=== PATIENT | female | born 1985 | race African-American/Black ===

== ENCOUNTER 2016-12-29 14:00 | Outpatient (RCR) | payer MEDICAID ==
[~2016-12-29 14:00] MED LIST: ACET50TA PO; EFFE75CA75 OR; IBUP-1114 PO; MOTR200T44 PO; NICO7DIS4 TD; PERCOCET PO; QUET20XRTB PO; TRAZ150T OR; lamictal
== END 2016-12-30 | disposition home or self-care (01) ==
LOC: M OUTALCOH 14:00
PROVIDERS: ATTEND Psychiatry & Neurology Psychiatry
DX: F13.20 Sedative, hypnotic or anxiolytic dependence, uncomplicated (principal); F11.20 Opioid dependence, uncomplicated; F12.20 Cannabis dependence, uncomplicated; F17.200 Nicotine dependence, unspecified, uncomplicated; F14.20 Cocaine dependence, uncomplicated

== ENCOUNTER 2017-01-26 14:00 | Outpatient (RCR) | payer MEDICAID | END 2017-01-27 | LOC: M OUTALCOH 14:00 | PROVIDERS: ATTEND Psychiatry & Neurology Psychiatry | DX: F13.20 Sedative, hypnotic or anxiolytic dependence, uncomplicated (principal); F11.20 Opioid dependence, uncomplicated; F12.20 Cannabis dependence, uncomplicated; F17.200 Nicotine dependence, unspecified, uncomplicated; F14.20 Cocaine dependence, uncomplicated ==

== ENCOUNTER → 2017-02-27 | Outpatient (RCR) | payer MEDICAID | LOC: M OUTALCOH 02-02 14:44 | PROVIDERS: ATTEND Psychiatry & Neurology Psychiatry | DX: F13.20 Sedative, hypnotic or anxiolytic dependence, uncomplicated (principal); F11.20 Opioid dependence, uncomplicated; F12.20 Cannabis dependence, uncomplicated; F17.200 Nicotine dependence, unspecified, uncomplicated; F14.20 Cocaine dependence, uncomplicated ==

== ENCOUNTER 2017-03-26 14:00 | Outpatient (RCR) | payer MEDICAID | END 2017-03-29 | LOC: M OUTALCOH 14:00 | PROVIDERS: ATTEND Psychiatry & Neurology Psychiatry | DX: F13.20 Sedative, hypnotic or anxiolytic dependence, uncomplicated (principal); F11.20 Opioid dependence, uncomplicated; F12.20 Cannabis dependence, uncomplicated; F17.200 Nicotine dependence, unspecified, uncomplicated; F14.20 Cocaine dependence, uncomplicated ==

== ENCOUNTER → 2017-04-20 | Outpatient (REF) | payer MEDICAID ==
[2017-04-20 17:24] LABS: MEAN CORPUSCULAR HEMOGLOBIN 30.8 pg (27.0-33.0); MEAN CORPUSCULAR HGB CONC 32.7 g/dl (32.0-36.5); MEAN CORPUSCULAR VOLUME 94.1 fl (80.0-96.0); RED CELL DISTRIBUTION WIDTH 13.1 % (11.5-14.5)
[2017-04-20 18:15] LABS: HCG, SERUM QUANTITATIVE 4048 MIU/ML
== END ==
LOC: M LAB REF 16:37
PROVIDERS: ATTEND Obstetrics & Gynecology
DX: O36.80X0 Pregnancy with inconclusive fetal viability, not applicable or unspecified (principal); Z36 Encounter for antenatal screening of mother; Z3A.00 Weeks of gestation of pregnancy not specified

== ENCOUNTER 2017-04-23 14:00 | Outpatient (RCR) | payer MEDICAID | END 2017-04-29 | LOC: M OUTALCOH 14:00 | PROVIDERS: ATTEND Psychiatry & Neurology Psychiatry | DX: F13.20 Sedative, hypnotic or anxiolytic dependence, uncomplicated (principal); F11.20 Opioid dependence, uncomplicated; F12.20 Cannabis dependence, uncomplicated; F17.200 Nicotine dependence, unspecified, uncomplicated; F14.20 Cocaine dependence, uncomplicated ==

== ENCOUNTER → 2017-06-19 | Outpatient (CLI) | payer OTHER ==
[~2017-06-19] MED LIST changes: +BUPR150T3; +DIPH25CA; +LATU20TA; +MINI1CAP PO; +PRAZ1CAP; +PRENTAB55 PO; +WELLTAB38 PO
--- NOTE | 2017-06-19 16:14 | REP ---
OB ULTRASOUND: Real-time sonographic evaluation of the gravid uterus is performed utilizing transabdominal and endovaginal technique. There is a single living intrauterine gestation. The estimated gestational age is 26 weeks 3 days based on prior ultrasound performed at an outside institution. EDC 09/22/2017. Today's measurements indicate appropriate growth. BPD 61 mm = 24 weeks 6 days. HC 221 mm = 24 weeks 1 day. AC 214 mm = 25 weeks 6 days. Femur length 46 mm = 25 weeks 2 days. HC/AC ratio 1.04 within normal range of 1.02-1.21 Estimated weight 812 grams at the 19th percentile based on the estimated gestational age from the outside ultrasound. Cervix is closed and measures 3.7 cm in length on endovaginal imaging. heart rate 153 beats per minute. SEEN/GROSSLY UNREMARKABLE Lateral ventricles Yes Posterior fossa Yes Upper lip Yes Four-chamber heart Yes LVOT Yes RVOT Yes Stomach Yes Cord insertion Yes Three vessel cord Yes Kidneys There is bilateral hydronephrosis. Bladder Yes Spine Yes position: Breach. Placenta: Posterior and grade 1 with no previa or abruption. Amniotic fluid: Within normal limits. Signed by Wes Catalan MD 06/19/2017 08:19 P
== END ==
LOC: M SMT 13:59
PROVIDERS: ATTEND Surgery
DX: O32.1XX0 Maternal care for breech presentation, not applicable or unspecified (principal); Z36 Encounter for antenatal screening of mother; Z3A.26 26 weeks gestation of pregnancy; O36.8920 Maternal care for other specified fetal problems, second trimester, not applicable or unspecified

== ENCOUNTER → 2017-06-23 | Outpatient (CLI) | payer OTHER ==
[2017-06-23 17:15] LABS: BASO % 0.3 % (0.0-1.0); EOS # 0.3 K/mm3 (0.0-0.50); EOS % 2.7 % (0.0-3.0); LARGE UNSTAINED CELL # 0.2 K/mm3 (0.0-0.4); LARGE UNSTAINED CELL % 1.5 % (0.0-4.0); LYMPH # 2.6 K/mm3 (1.5-6.5); LYMPH % 22.2 % (24.0-44.0); MEAN CORPUSCULAR HEMOGLOBIN 30.6 pg (27.0-33.0); MEAN CORPUSCULAR HGB CONC 32.8 g/dl (32.0-36.5); MEAN CORPUSCULAR VOLUME 93.2 fl (80.0-96.0); MONO # 0.5 K/mm3 (0.0-0.8); MONO % 4.1 % (0.0-5.0); NEUTROPHILS # 8.1 K/mm3 (1.8-7.7); NEUTROPHILS % 69.1 % (36.0-66.0); PLATELET COUNT, AUTOMATED 328 k/mm3 (150-450); WHITE BLOOD COUNT 11.8 K/mm3 (4.0-10.0)
== END ==
LOC: M WUC 12:48
PROVIDERS: ATTEND Advanced Practice Midwife
DX: Z34.82 Encounter for supervision of other normal pregnancy, second trimester (principal); Z36 Encounter for antenatal screening of mother; Z3A.00 Weeks of gestation of pregnancy not specified

== ENCOUNTER → 2017-08-10 | Outpatient (CLI) | payer OTHER ==
--- NOTE | 2017-08-11 10:08 | SLEEPHOME ---
DATE OF PROCEDURE: 08/10/2017 ORDERED BY: Tad Yanez DO Diagnostic home sleep testing was performed due to concern for the obstructive sleep apnea syndrome. For testing, a NOX-T3 respiratory monitoring device was used. Continuous record was made of pulse, oxygen saturation, air flow, chest and abdominal strain, and body position. 9 hours and 59 minutes of data were reviewed. Of these, 7 hours and 49 minutes were marked as time in bed. During the interval marked time in bed, there were 51 respiratory events identified of 10 seconds in duration or greater for a respiratory event index of 6.5 per hour. The events were primarily obstructive. Occasional mix and central apneas were seen. Baseline pulse rate was 90 beats per minute. Pulse rate ranged 74-117. Baseline saturation 92%. Lowest oxygen saturation recorded 80%. Testing was performed in both supine and non supine positions. There was no positional nature to the respiratory events seen. IMPRESSION: Abnormal home sleep testing with repetitive respiratory events and oxygen desaturations to 80% with a respiratory event index of 6.5 per hour is consistent with the obstructive sleep apnea syndrome. RECOMMENDATION: The patient should be encouraged to undergo a formal sleep evaluation and in-laboratory pressure titration in light of the oxygen desaturations seen and frequency of respiratory events.
== END ==
LOC: M SLEEP HO 12:04
PROVIDERS: ATTEND Obstetrics & Gynecology
DX: G47.9 Sleep disorder, unspecified (principal)

== ENCOUNTER → 2017-08-17 | Outpatient (REF) | payer OTHER | LOC: M LAB REF 12:48 | PROVIDERS: ATTEND Advanced Practice Midwife | DX: Z34.83 Encounter for supervision of other normal pregnancy, third trimester (principal); Z36 Encounter for antenatal screening of mother; Z3A.00 Weeks of gestation of pregnancy not specified ==

== ENCOUNTER 2017-08-19 19:26 | Emergency (ER) | payer OTHER ==
[~2017-08-19] VITALS: Ht 149.9 cm; Wt 100.0 kg
[2017-08-19 19:26] VITALS: BP 148/90
[~2017-08-19 19:26] MED LIST changes: -BUPR150T3; -DIPH25CA; -LATU20TA; -MINI1CAP PO; -PRAZ1CAP; -PRENTAB55 PO; -WELLTAB38 PO
[2017-08-19] MEDS ORDERED: BUPR150T3 (19:50)
[2017-08-19] MEDS ORDERED: PRAZ1CAP (19:50)
[2017-08-19] MEDS ORDERED: DIPH25CA (19:50)
[2017-08-19] MEDS ORDERED: LATU20TA (19:50)
[2017-08-19] MEDS ORDERED: PRENTAB55 PO (19:50)
== END 2017-08-19 20:20 | disposition home or self-care (01) ==
LOC: M ED 19:26
DX: O9A.219 Injury, poisoning and certain other consequences of external causes complicating pregnancy, unspecified trimester (principal); T59.91XA Toxic effect of unspecified gases, fumes and vapors, accidental (unintentional), initial encounter; O99.89 Other specified diseases and conditions complicating pregnancy, childbirth and the puerperium; R05 Cough; Z79.899 Other long term (current) drug therapy; Z91.040 Latex allergy status; Z87.891 Personal history of nicotine dependence; Z3A.00 Weeks of gestation of pregnancy not specified

== ENCOUNTER 2017-08-19 20:20 | Outpatient (CLI) | payer OTHER ==
[~2017-08-19 20:20] MED LIST changes: +BUPR150T3; +DIPH25CA; +LATU20TA; +PRAZ1CAP; +PRENTAB55 PO
== END 2017-08-19 21:30 | disposition home or self-care (01) ==
LOC: M LDO 20:20
PROVIDERS: ATTEND Specialist
DX: O99.89 Other specified diseases and conditions complicating pregnancy, childbirth and the puerperium (principal); Z3A.35 35 weeks gestation of pregnancy; Z77.9 Other contact with and (suspected) exposures hazardous to health; Z91.040 Latex allergy status

== ENCOUNTER 2017-08-29 21:38 | Inpatient (IN) | payer OTHER ==
[~2017-08-29] VITALS: Ht 149.9 cm; Wt 94.0 kg
[2017-08-29] MEDS ORDERED: LACTATED RINGER'S 1000 ML IV SCH (22:30)
[2017-08-29] MEDS ORDERED: LR 1,000 ML IV ONE (22:30)
[2017-08-29 22:31] LABS: MEAN CORPUSCULAR HEMOGLOBIN 29.5 pg (27.0-33.0); MEAN CORPUSCULAR HGB CONC 33.3 g/dl (32.0-36.5); MEAN CORPUSCULAR VOLUME 88.4 fl (80.0-96.0); RED CELL DISTRIBUTION WIDTH 13.8 % (11.5-14.5); WHITE BLOOD COUNT 11.5 10^3/uL (4.0-10.0)
[2017-08-29] MEDS ORDERED: LR 1,000 ML IV SCH ×2 (22:35→22:45)
[2017-08-29] MEDS ORDERED: PENICILLIN G POTASSIUM IV 5 MU in D5W MINI-BAG PLUS 100 ML IV STA (22:35)
[2017-08-29] MEDS ORDERED: LACTATED RINGER'S 1000 ML IV STA (22:35)
[2017-08-29 23:00] VITALS: BP 124/91
[2017-08-29] MEDS ORDERED: FENTANYL 2MCG/ML ROPIVACAINE 0.2% IN 0.9% NACL 200ML IVBAG As Ordered ONE (23:26)
[2017-08-29] MEDS ORDERED: OXYTOCIN 30 UNITS IN 0.9% NaCl 500ML IV BAG (J2590) As Ordered ONE (23:47)
[2017-08-30] VITALS (7 sets, daily range): BP systolic 122–159; BP diastolic 68–90
[2017-08-30] MEDS ORDERED: PROMETHAZINE 25 MG TAB PO PRN (00:15)
[2017-08-30] MEDS ORDERED: OXYTOCIN DRIP 30 UNITS in APPROPRIATE DILUENT 1 EA IV SCH (00:15)
[2017-08-30] MEDS ORDERED: ONDANSETRON 4MG/2ML VIAL (J2405) IV PRN (00:15)
[2017-08-30] MEDS ORDERED: MEASLES,MUMPS,RUBELLA VACCINE INJ (MMR-II) (90707) SC SCH (00:15)
[2017-08-30] MEDS: LR 1,000 ML IV SCH ×3 (00:15→21:31)
[2017-08-30] MEDS ORDERED: DIBUCAINE 1% OINTMENT 30GM TOP PRN (00:15)
[2017-08-30] MEDS ORDERED: LIDOCAINE 1% MDV INJ 50 ML VIAL INFIL ONE (00:15)
[2017-08-30] MEDS ORDERED: RHOGAM 300 MCG (1500 IU) INJ (J2790) IM SCH (00:15)
[2017-08-30] MEDS ORDERED: DOCUSATE SODIUM 100 MG CAP PO PRN (00:15)
[2017-08-30] MEDS ORDERED: METHYLERGONOVINE MALEATE 0.2 MG TAB PO PRN (00:15)
[2017-08-30] MEDS: IBUPROFEN 800 MG TAB PO PRN ×2 (02:21→14:11)
[2017-08-30] MEDS ORDERED: PENICILLIN G POTASSIUM IV 2.5 MU in D5W 100 ML IV SCH (03:00)
[2017-08-30] MEDS ORDERED: ALBUTEROL 90 MCG/ACT 8GM HFA INHALER INH PRN (03:15)
[2017-08-30] MEDS: ACETAMINOPHEN 500 MG TAB PO PRN ×2 (05:19→16:57)
[2017-08-30] MEDS: PRENATAL VITAMINS CHEWABLE TABLET PO SCH (09:00)
[2017-08-30] MEDS: PRAZOSIN 1 MG CAP PO SCH (21:23)
[2017-08-30] MEDS: LURASIDONE 20 MG TAB (LATUDA) PO SCH (21:33)
[2017-08-30] MEDS: buPROPion **XL** TABLET 150MG (WELLBUTRIN XL) PO SCH (21:33)
[2017-08-31] MEDS: LR 1,000 ML IV SCH ×3 (00:15→16:15)
[2017-08-31] MEDS: IBUPROFEN 800 MG TAB PO PRN ×3 (03:32→23:23)
[2017-08-31 05:55] VITALS: BP 105/55
[2017-08-31] MEDS: PRENATAL VITAMINS CHEWABLE TABLET PO SCH (08:50)
[2017-08-31] MEDS: LURASIDONE 20 MG TAB (LATUDA) PO SCH (08:50)
[2017-08-31] MEDS: buPROPion **XL** TABLET 150MG (WELLBUTRIN XL) PO SCH (08:50)
[2017-08-31] MEDS: PRAZOSIN 1 MG CAP PO SCH (21:36)
[2017-09-01] MEDS: LR 1,000 ML IV SCH (00:15)
[2017-09-01 05:54] VITALS: BP 111/54
[2017-09-01] MEDS: LURASIDONE 20 MG TAB (LATUDA) PO SCH (08:33)
[2017-09-01] MEDS: buPROPion **XL** TABLET 150MG (WELLBUTRIN XL) PO SCH (08:34)
[2017-09-01] MEDS: PRENATAL VITAMINS CHEWABLE TABLET PO SCH (08:34)
[2017-09-01] MEDS ORDERED: ACET50TA PO (09:25)
[2017-09-01] MEDS ORDERED: IBUP-1114 PO (09:25)
[2017-09-01] MEDS ORDERED: WELLTAB38 PO (09:25)
[2017-09-01] MEDS ORDERED: MINI1CAP PO (09:25)
== END 2017-09-01 14:15 | disposition home or self-care (01) | DRG 560 ==
LOC: M LDO 21:38 → M LDI 21:52 → M OBS 08-30 02:38 → UNDODISIN 08-31 16:05
PROVIDERS: ADMIT Obstetrics & Gynecology; ATTEND Obstetrics & Gynecology
PROC: 10E0XZZ Delivery of Products of Conception, External Approach (ICD-10-PCS; principal; 2017-08-30)
PROC: 0HQ9XZZ Repair Perineum Skin, External Approach (ICD-10-PCS; 2017-08-30)
DX: O60.14X0 Preterm labor third trimester with preterm delivery third trimester, not applicable or unspecified (principal); O99.344 Other mental disorders complicating childbirth; F32.9 Major depressive disorder, single episode, unspecified; Z37.0 Single live birth; Z3A.36 36 weeks gestation of pregnancy; J45.909 Unspecified asthma, uncomplicated; Z79.899 Other long term (current) drug therapy; Z91.040 Latex allergy status; O70.0 First degree perineal laceration during delivery; O99.52 Diseases of the respiratory system complicating childbirth

== ENCOUNTER 2017-10-25 17:34 | Emergency (ER) | payer OTHER ==
[~2017-10-25] VITALS: Ht 149.9 cm; Wt 83.2 kg
[~2017-10-25 17:34] MED LIST changes: +MINI1CAP PO; +WELLTAB38 PO
[2017-10-25 17:35] VITALS: BP 136/86
== END 2017-10-25 19:52 | disposition home or self-care (01) ==
LOC: M ED 17:34
DX: S09.90XA Unspecified injury of head, initial encounter (principal); R51 Headache; R68.84 Jaw pain; H53.9 Unspecified visual disturbance; W21.02XA Struck by soccer ball, initial encounter; Y92.89 Other specified places as the place of occurrence of the external cause; Y93.89 Activity, other specified; Y99.8 Other external cause status; F41.9 Anxiety disorder, unspecified; F32.9 Major depressive disorder, single episode, unspecified; F17.200 Nicotine dependence, unspecified, uncomplicated; Z91.040 Latex allergy status; Z79.899 Other long term (current) drug therapy

== ENCOUNTER → 2017-10-31 | Outpatient (CLI) | payer OTHER ==
--- NOTE | 2017-10-31 14:48 | REP ---
THORACIC SPINE, THREE VIEWS: HISTORY: Back pain. There is no acute fracture or subluxation. The intervertebral discs are normal in height. IMPRESSION: There is no acute fracture or subluxation. Signed by Vidal Munoz MD 10/31/2017 03:32 P
--- NOTE | 2017-10-31 14:50 | REP ---
LUMBAR SPINE, FIVE VIEWS: HISTORY: Back pain. There is no acute fracture or subluxation. The L4-5 intervertebral disc is decreased in height consistent with disc degeneration. The facet joints are normal in appearance. IMPRESSION: Degenerative change as described above. Signed by Vidal Munoz MD 10/31/2017 03:32 P
== END ==
LOC: M LRY 13:26
PROVIDERS: ATTEND Nurse Practitioner Family
DX: M51.36 Other intervertebral disc degeneration, lumbar region (principal)

== ENCOUNTER → 2017-10-31 | Outpatient (REF) | payer OTHER | LOC: M SFHCLERA 13:18 | PROVIDERS: ATTEND Nurse Practitioner Family | DX: M54.9 Dorsalgia, unspecified (principal) ==

== ENCOUNTER 2017-11-09 20:05 | Emergency (ER) | payer OTHER ==
[~2017-11-09] VITALS: Ht 149.9 cm; Wt 83.2 kg
[2017-11-09 20:05] VITALS: BP 120/77
[2017-11-09] MEDS ORDERED: TIZA2CAP3 PO (20:18)
[2017-11-09] MEDS ORDERED: NORCOTAB PO (23:11)
[2017-11-09] MEDS ORDERED: CLEO300C2 PO (23:11)
[2017-11-09] MEDS ORDERED: CLINDAMYCIN 150 MG CAP PO ONE (23:15)
[2017-11-09] MEDS ORDERED: NORCO 5/325MG TABLET (BULK FOR ED) PO ONE (23:15)
== END 2017-11-09 23:25 | disposition home or self-care (01) ==
LOC: M ED 20:05
DX: K08.89 Other specified disorders of teeth and supporting structures (principal); Z79.899 Other long term (current) drug therapy; Z91.040 Latex allergy status; Z87.891 Personal history of nicotine dependence; Z86.79 Personal history of other diseases of the circulatory system

== ENCOUNTER 2017-12-29 10:22 | Outpatient (RCR) | payer OTHER | END 2017-12-30 | LOC: M PT 10:22 | DX: Z51.89 Encounter for other specified aftercare (principal); M54.5 Low back pain ==

== ENCOUNTER 2018-01-05 11:54 | Outpatient (RCR) | payer OTHER | END 2018-01-27 | LOC: M PT 11:54 | DX: Z51.89 Encounter for other specified aftercare (principal); M54.5 Low back pain ==

== ENCOUNTER 2018-01-29 10:39 | Outpatient (RCR) | payer OTHER | END 2018-02-27 | LOC: M PT 10:39 | DX: Z51.89 Encounter for other specified aftercare (principal); M54.5 Low back pain ==

== ENCOUNTER → 2018-02-13 | Outpatient (REF) | payer OTHER | LOC: M LAB REF 15:07 | DX: J11.1 Influenza due to unidentified influenza virus with other respiratory manifestations (principal) ==

== ENCOUNTER → 2018-02-24 | Outpatient (CLI) | payer OTHER | LOC: M RAD 09:00 | DX: S39.012D Strain of muscle, fascia and tendon of lower back, subsequent encounter (principal) | CPT/HCPCS: 72110 ==

== ENCOUNTER → 2018-03-22 | Outpatient (CLI) | payer OTHER | LOC: M SLEEP HO 11:07 | DX: G47.30 Sleep apnea, unspecified (principal) | CPT/HCPCS: G0399 ==

== ENCOUNTER → 2018-07-27 | Outpatient (REF) | payer OTHER ==
[2018-07-30 00:06] LABS: F280-IGE BLACK PEPPER <0.10 kU/L (Class 0)
== END ==
LOC: M LAB REF 10:52
DX: Z91.018 Allergy to other foods (principal)

== ENCOUNTER 2019-07-04 11:13 | Emergency (ER) | payer OTHER ==
[~2019-07-04] VITALS: Ht 149.9 cm; Wt 78.9 kg
[2019-07-04 11:13] VITALS: BP 149/92
[~2019-07-04 11:13] MED LIST changes: -ACET50TA PO; +CLEO300C2 PO; -DIPH25CA; +DIPH25CA32; +HYDR-3715 PO; +MAPA500T2 PO; -QUET20XRTB PO; +SERO200T43 PO; +TIZA2CAP PO
[2019-07-04] MEDS ORDERED: METAL LOCK LOOP XX ONE ×2 (13:51→13:52)
[2019-07-04 15:30] LABS: HIV 1&2 SCREEN CENTAUR NEGATIVE (NEGATIVE)
[2019-07-04 15:42] LABS: CHLAMYDIA DNA AMPLIFICATION NEGATIVE (NEGATIVE); GC DNA AMPLIFICATION NEGATIVE (NEGATIVE)
== END 2019-07-04 14:12 | disposition home or self-care (01) ==
LOC: M ED 11:13
DX: Z11.3 Encounter for screening for infections with a predominantly sexual mode of transmission (principal); Z72.0 Tobacco use; Z91.040 Latex allergy status

== ENCOUNTER → 2019-08-18 | Outpatient (REF) | payer OTHER ==
[~2019-08-18] MED LIST changes: +AUGM875T28 PO; +GABA-845 PO; +IBUP-1022 PO; +MAGICMW SSP; +TRUVTAB PO
[2019-08-18 20:34] LABS: BASO # 0.1 10^3/uL (0.0-0.2); BASO % 0.8 % (0.0-1.0); EOS # 0.3 10^3/uL (0.0-0.5); EOS % 2.1 % (0.0-3.0); HEMATOCRIT 39.1 % (36.0-47.0); HEMOGLOBIN 12.2 g/dl (12.0-15.5); LYMPH # 3.8 10^3/uL (1.5-5.0); LYMPH % 32.5 % (24.0-44.0); MEAN CORPUSCULAR HEMOGLOBIN 29.3 pg (27.0-33.0); MEAN CORPUSCULAR HGB CONC 31.2 g/dl (32.0-36.5); MEAN CORPUSCULAR VOLUME 93.8 fl (80.0-96.0); MONO # 0.7 10^3/uL (0.0-0.8); MONO % 5.9 % (0.0-5.0); NEUTROPHILS # 6.9 10^3/uL (1.5-8.5); NEUTROPHILS % 58.4 % (36.0-66.0); PLATELET COUNT, AUTOMATED 377 10^3/uL (150-450); RED BLOOD COUNT 4.17 10^6/uL (4.00-5.40); WHITE BLOOD COUNT 11.8 10^3/uL (4.0-10.0)
[2019-08-18 20:43] LABS: ALBUMIN 3.4 GM/DL (3.2-5.2); ALT/SGPT 16 U/L (12-78); BILIRUBIN,TOTAL 0.2 MG/DL (0.2-1.0); BLOOD UREA NITROGEN 13 MG/DL (7-18); CALCIUM LEVEL 9.1 MG/DL (8.5-10.1); CARBON DIOXIDE LEVEL 27 MEQ/L (21-32); CHLORIDE LEVEL 106 MEQ/L (98-107); CREATININE FOR GFR 0.94 MG/DL (0.55-1.30); GLOMERULAR FILTRATION RATE > 60.0 (>60); GLUCOSE, FASTING 82 MG/DL (70-100); POTASSIUM SERUM 4.3 MEQ/L (3.5-5.1); SODIUM LEVEL 140 MEQ/L (136-145); TOTAL PROTEIN 7.3 GM/DL (6.4-8.2)
[2019-08-18 21:04] LABS: APPEARANCE, URINE CLEAR (CLEAR); BACTERIA, URINE AUTO NEGATIVE (NEGATIVE); BILIRUBIN, URINE AUTO NEGATIVE (NEGATIVE); BLOOD, URINE BLOOD 1+ (NEGATIVE); COLOR, URINE YELLOW (YELLOW); GLUCOSE, URINE (UA) AUTO NEGATIVE (NEGATIVE); KETONE, URINE AUTO NEGATIVE (NEGATIVE); LEUKOCYTE ESTERASE, URINE AUTO NEGATIVE (NEGATIVE); NITRITE, URINE AUTO NEGATIVE (NEGATIVE); PROTEIN, URINE AUTO NEGATIVE (NEGATIVE); RBC, URINE AUTO 7 /HPF (0-3); SPECIFIC GRAVITY URINE AUTO 1.019 (1.002-1.035); SQUAMOUS EPITHELIAL CELL UR AU 1 /HPF (0-6); WBC, URINE AUTO 1 /HPF (0-3)
[2019-08-18 23:02] LABS: CHLAMYDIA DNA AMPLIFICATION NEGATIVE (NEGATIVE); GC DNA AMPLIFICATION NEGATIVE (NEGATIVE)
[2019-08-19 09:37] LABS: HEPATITIS B SURFACE ANTIBODY POSITIVE (POSITIVE)
[2019-08-19 09:48] LABS: HEPATITIS B SURFACE ANTIGEN NEGATIVE (NEGATIVE)
[2019-08-19 10:16] LABS: HIV 1&2 SCREEN CENTAUR NEGATIVE (NEGATIVE)
[2019-08-19 10:58] LABS: HEPATITIS C VIRUS ABY INDEX 0.1 INDEX (<0.8)
[2019-08-23 00:07] LABS: HEPATITIS A IgG TOTAL Negative (Negative); HEPATITIS B CORE ANTIBODY IGG Negative (Negative); HIV-1 RNA PCR QUANT 2 LC550285 <20 copies/mL (.)
[2019-08-23 11:50] LABS: HCG, SERUM QUALITATIVE NEGATIVE (NEGATIVE)
== END ==
LOC: M SFHCPLAZ 14:13
PROVIDERS: ATTEND Internal Medicine Infectious Disease
DX: Z20.6 Contact with and (suspected) exposure to human immunodeficiency virus [HIV] (principal); R61 Generalized hyperhidrosis

== ENCOUNTER 2019-09-29 17:25 | Emergency (ER) | payer OTHER ==
[~2019-09-29] VITALS: Ht 149.9 cm; Wt 76.5 kg
[~2019-09-29 17:25] MED LIST changes: -AUGM875T28 PO; -GABA-845 PO; -IBUP-1022 PO; -MAGICMW SSP; -TRUVTAB PO
[2019-09-29] MEDS ORDERED: TRUVTAB PO (17:30)
[2019-09-29] MEDS ORDERED: AUGM875T28 PO (18:32)
[2019-09-29] MEDS ORDERED: MAGICMW SSP (18:32)
[2019-09-29] MEDS ORDERED: IBUP-1022 PO (18:51)
[2019-09-29 18:53] VITALS: BP 122/84
== END 2019-09-29 18:55 | disposition home or self-care (01) ==
LOC: M ED 17:25
DX: K08.89 Other specified disorders of teeth and supporting structures (principal); F17.210 Nicotine dependence, cigarettes, uncomplicated; Z91.040 Latex allergy status; Z79.899 Other long term (current) drug therapy

== ENCOUNTER → 2019-10-13 | Outpatient (REF) | payer OTHER ==
[~2019-10-13] MED LIST changes: +AUGM875T28 PO; +IBUP-1022 PO; +MAGICMW SSP; +TRUVTAB PO
[2019-10-13 19:26] LABS: HEMATOCRIT 41.2 % (36.0-47.0); HEMOGLOBIN 12.6 g/dl (12.0-15.5); MEAN CORPUSCULAR HEMOGLOBIN 28.7 pg (27.0-33.0); MEAN CORPUSCULAR HGB CONC 30.6 g/dl (32.0-36.5); MEAN CORPUSCULAR VOLUME 93.8 fl (80.0-96.0); PLATELET COUNT, AUTOMATED 388 10^3/uL (150-450); RED BLOOD COUNT 4.39 10^6/uL (4.00-5.40)
[2019-10-13 19:30] LABS: APPEARANCE, URINE CLEAR (CLEAR); BACTERIA, URINE AUTO NEGATIVE (NEGATIVE); BILIRUBIN, URINE AUTO NEGATIVE (NEGATIVE); BLOOD, URINE BLOOD 2+ (NEGATIVE); COLOR, URINE STRAW (YELLOW); GLUCOSE, URINE (UA) AUTO NEGATIVE (NEGATIVE); KETONE, URINE AUTO NEGATIVE (NEGATIVE); LEUKOCYTE ESTERASE, URINE AUTO NEGATIVE (NEGATIVE); NITRITE, URINE AUTO NEGATIVE (NEGATIVE); PROTEIN, URINE AUTO NEGATIVE (NEGATIVE); RBC, URINE AUTO 2 /HPF (0-3); SPECIFIC GRAVITY URINE AUTO 1.004 (1.002-1.035); SQUAMOUS EPITHELIAL CELL UR AU 1 /HPF (0-6); UROBILINOGEN, URINE AUTO 0.2 mg/dL (0.0-2.0); WBC, URINE AUTO 0 /HPF (0-3)
[2019-10-13 19:40] LABS: BLOOD UREA NITROGEN 10 MG/DL (7-18); CARBON DIOXIDE LEVEL 27 MEQ/L (21-32); CHLORIDE LEVEL 102 MEQ/L (98-107); CREATININE FOR GFR 0.88 MG/DL (0.55-1.30); GLOMERULAR FILTRATION RATE > 60.0 (>60); GLUCOSE, FASTING 86 MG/DL (70-100); HCG, SERUM QUANTITATIVE < 1.0 MIU/ML; SODIUM LEVEL 135 MEQ/L (136-145)
[2019-10-13 19:47] LABS: WHITE BLOOD COUNT 13.2 10^3/uL (4.0-10.0)
[2019-10-13 20:11] LABS: EOSINOPHILS 2 % (0-3); LYMPHOCYTES 47 % (16-44); MONOCYTES 6 % (0-5); NEUTROPHILS 45 % (28-66); PLATELET ESTIMATE NORMAL (NORMAL); POIKILOCYTOSIS 1+; TARGET CELLS 1+
[2019-10-14 10:07] LABS: HIV 1&2 SCREEN CENTAUR NEGATIVE (NEGATIVE)
== END ==
LOC: M SFHCPLAZ 14:56
PROVIDERS: ATTEND Internal Medicine Infectious Disease
DX: Z20.6 Contact with and (suspected) exposure to human immunodeficiency virus [HIV] (principal)

== ENCOUNTER 2019-10-23 17:50 | Emergency (ER) | payer OTHER ==
[~2019-10-23] VITALS: Ht 149.9 cm; Wt 74.5 kg
[2019-10-23 17:51] VITALS: BP 144/84
[2019-10-23] MEDS ORDERED: GABA-845 PO (17:56)
[2019-10-23] MEDS ORDERED: TRUVTAB PO (17:56)
[2019-10-23 19:16] LABS: HEMATOCRIT 39.4 % (36.0-47.0); HEMOGLOBIN 12.5 g/dl (12.0-15.5); MEAN CORPUSCULAR HEMOGLOBIN 29.7 pg (27.0-33.0); MEAN CORPUSCULAR HGB CONC 31.7 g/dl (32.0-36.5); MEAN CORPUSCULAR VOLUME 93.6 fl (80.0-96.0); PLATELET COUNT, AUTOMATED 371 10^3/uL (150-450); RED BLOOD COUNT 4.21 10^6/uL (4.00-5.40)
[2019-10-23 19:20] LABS: WHITE BLOOD COUNT 13.5 10^3/uL (4.0-10.0)
[2019-10-23 19:27] LABS: ANISOCYTOSIS 1+; ATYPICAL LYMPH 2 % (0-5); BASOPHILS 1 % (0-1); EOSINOPHILS 6 % (0-3); LYMPHOCYTES 28 % (16-44); MONOCYTES 5 % (0-5); NEUTROPHILS 58 % (28-66); PLATELET ESTIMATE NORMAL (NORMAL); POIKILOCYTOSIS 1+
[2019-10-23 19:43] LABS: ALBUMIN 3.6 GM/DL (3.2-5.2); ALT/SGPT 22 U/L (12-78); BILIRUBIN,DIRECT < 0.1 MG/DL (0.0-0.2); BILIRUBIN,TOTAL 0.3 MG/DL (0.2-1.0); BLOOD UREA NITROGEN 9 MG/DL (7-18); CARBON DIOXIDE LEVEL 27 MEQ/L (21-32); CHLORIDE LEVEL 105 MEQ/L (98-107); CREATININE FOR GFR 0.68 MG/DL (0.55-1.30); GLOMERULAR FILTRATION RATE > 60.0 (>60); GLUCOSE, FASTING 91 MG/DL (70-100); LIPASE 96 U/L (73-393); POTASSIUM SERUM 4.1 MEQ/L (3.5-5.1); SODIUM LEVEL 139 MEQ/L (136-145); TOTAL PROTEIN 7.9 GM/DL (6.4-8.2)
[2019-10-23 20:01] LABS: HCG, SERUM QUANTITATIVE < 1.0 MIU/ML
== END 2019-10-23 20:47 | disposition home or self-care (01) ==
LOC: M ED 17:50
DX: R10.9 Unspecified abdominal pain (principal); Z91.81 History of falling; J45.909 Unspecified asthma, uncomplicated; M54.9 Dorsalgia, unspecified; Z91.040 Latex allergy status; Z79.899 Other long term (current) drug therapy; F17.210 Nicotine dependence, cigarettes, uncomplicated

== ENCOUNTER → 2019-11-25 | Outpatient (CLI) | payer OTHER ==
[~2019-11-25] MED LIST changes: +GABA-845 PO
--- NOTE | 2019-11-25 11:51 | REP ---
PELVIC ULTRASOUND: Real-time sonographic evaluation of pelvis performed utilizing transabdominal technique. Bladder measures 9.3 x 6.9 x 8.6 cm. Uterus measures 9.5 x 4.3 x 5.5 cm. Endometrium is 2 mm in thickness. No gestational sac is seen in the endometrial canal. Right ovary measures 2.1 x 1.6 x 2.1 cm. There is no torsion. Left ovary is not visualized. There is no adnexal mass or free fluid. IMPRESSION: Empty uterus with no gestational sac identified. Endometrial thickness is 2 mm. Right ovary is normal. Left ovary is not visualized. I see no adnexal mass or free fluid. Electronically Signed by Wes Catalan MD 11/25/2019 05:11 P
== END ==
LOC: M RAD 09:28
PROVIDERS: ATTEND Physician Assistant Medical
DX: O26.859 Spotting complicating pregnancy, unspecified trimester (principal); Z3A.00 Weeks of gestation of pregnancy not specified

== ENCOUNTER → 2020-01-12 | Outpatient (REF) | payer OTHER ==
[2020-01-12 18:36] LABS: APPEARANCE, URINE CLOUDY (CLEAR); BACTERIA, URINE AUTO 3+ (NEGATIVE); BILIRUBIN, URINE AUTO NEGATIVE (NEGATIVE); BLOOD, URINE BLOOD 1+ (NEGATIVE); COLOR, URINE YELLOW (YELLOW); GLUCOSE, URINE (UA) AUTO NEGATIVE (NEGATIVE); KETONE, URINE AUTO TRACE mg/dL (NEGATIVE); LEUKOCYTE ESTERASE, URINE AUTO NEGATIVE (NEGATIVE); MUCUS, URINE SMALL (NEGATIVE); NITRITE, URINE AUTO NEGATIVE (NEGATIVE); PROTEIN, URINE AUTO 1+ mg/dL (NEGATIVE); RBC, URINE AUTO 22 /HPF (0-3); SPECIFIC GRAVITY URINE AUTO 1.028 (1.002-1.035); SQUAMOUS EPITHELIAL CELL UR AU 33 /HPF (0-6); WBC, URINE AUTO 2 /HPF (0-3)
[2020-01-12 19:08] LABS: BLOOD UREA NITROGEN 8 MG/DL (7-18); CALCIUM LEVEL 8.4 MG/DL (8.5-10.1); CARBON DIOXIDE LEVEL 28 MEQ/L (21-32); CHLORIDE LEVEL 103 MEQ/L (98-107); CREATININE FOR GFR 0.92 MG/DL (0.55-1.30); GLOMERULAR FILTRATION RATE > 60.0 (>60); GLUCOSE, FASTING 90 MG/DL (70-100); POTASSIUM SERUM 3.6 MEQ/L (3.5-5.1); SODIUM LEVEL 138 MEQ/L (136-145)
[2020-01-12 19:52] LABS: CHLAMYDIA DNA AMPLIFICATION NEGATIVE (NEGATIVE); GC DNA AMPLIFICATION NEGATIVE (NEGATIVE)
[2020-01-13 10:01] LABS: HIV 1&2 SCREEN CENTAUR NEGATIVE (NEGATIVE)
== END ==
LOC: M SFHCPLAZ 13:40
PROVIDERS: ATTEND Internal Medicine Infectious Disease
DX: Z20.6 Contact with and (suspected) exposure to human immunodeficiency virus [HIV] (principal)

== ENCOUNTER 2020-04-25 09:46 | Emergency (ER) | payer OTHER ==
[~2020-04-25] VITALS: Ht 149.9 cm; Wt 75.0 kg
[2020-04-25 10:45] LABS: HEMOGLOBIN 14.1 g/dl (12.0-15.5); MEAN CORPUSCULAR HEMOGLOBIN 30.4 pg (27.0-33.0); MEAN CORPUSCULAR HGB CONC 32.8 g/dl (32.0-36.5); MEAN CORPUSCULAR VOLUME 92.7 fl (80.0-96.0); PLATELET COUNT, AUTOMATED 396 10^3/uL (150-450); RED BLOOD COUNT 4.64 10^6/uL (4.00-5.40); WHITE BLOOD COUNT 13.1 10^3/uL (4.0-10.0)
[2020-04-25 11:16] LABS: AMPHETAMINES LEVEL URINE POSITIVE (NEGATIVE); BARBITURATES URINE NEGATIVE (NEGATIVE); BENZODIAZEPINES URINE NEGATIVE (NEGATIVE); CANNABINOIDS URINE POSITIVE (NEGATIVE); COCAINE METABOLITE URINE POSITIVE (NEGATIVE); METHADONE URINE NEGATIVE (NEGATIVE); OPIATES URINE NEGATIVE (NEGATIVE); PHENCYCLIDINE URINE NEGATIVE (NEGATIVE)
[2020-04-25 11:22] LABS: ACETAMINOPHEN LEVEL < 2.0 UG/ML (10.0-30.0); ALBUMIN 3.9 GM/DL (3.2-5.2); ALT/SGPT 26 U/L (12-78); BILIRUBIN,DIRECT 0.2 MG/DL (0.0-0.2); BILIRUBIN,TOTAL 0.5 MG/DL (0.2-1.0); BLOOD UREA NITROGEN 13 MG/DL (7-18); CALCIUM LEVEL 8.8 MG/DL (8.5-10.1); CARBON DIOXIDE LEVEL 25 MEQ/L (21-32); CHLORIDE LEVEL 105 MEQ/L (98-107); CREATININE FOR GFR 1.11 MG/DL (0.55-1.30); ETHYL ALCOHOL (ETHANOL) < 0.003 % (0.000-0.010); GLOMERULAR FILTRATION RATE > 60.0 (>60); GLUCOSE, FASTING 83 MG/DL (70-100); POTASSIUM SERUM 4.1 MEQ/L (3.5-5.1); SALICYLATE LEVEL 3.1 MG/DL (5.0-30.0); SODIUM LEVEL 137 MEQ/L (136-145); THYROID STIMULATING HORMONE 0.587 uIU/ML (0.358-3.740); TOTAL PROTEIN 8.7 GM/DL (6.4-8.2)
[2020-04-25 14:06] VITALS: BP 124/90
== END 2020-04-25 14:20 | disposition home or self-care (01) ==
LOC: M ED 09:46
DX: F43.0 Acute stress reaction (principal); F32.9 Major depressive disorder, single episode, unspecified; F41.9 Anxiety disorder, unspecified; G47.33 Obstructive sleep apnea (adult) (pediatric); F17.210 Nicotine dependence, cigarettes, uncomplicated; Z91.040 Latex allergy status
CPT/HCPCS: 36415; 80048; 80076; 80307; 84443; 85027; 99284; G0480

== ENCOUNTER → 2020-04-30 | Outpatient (REF) | payer OTHER ==
[2020-04-30 15:33] LABS: APPEARANCE, URINE HAZY (CLEAR); BACTERIA, URINE AUTO NEGATIVE (NEGATIVE); BILIRUBIN, URINE AUTO NEGATIVE (NEGATIVE); BLOOD, URINE BLOOD 1+ (NEGATIVE); COLOR, URINE YELLOW (YELLOW); GLUCOSE, URINE (UA) AUTO NEGATIVE (NEGATIVE); KETONE, URINE AUTO NEGATIVE (NEGATIVE); LEUKOCYTE ESTERASE, URINE AUTO NEGATIVE (NEGATIVE); MUCUS, URINE SMALL (NEGATIVE); NITRITE, URINE AUTO NEGATIVE (NEGATIVE); PROTEIN, URINE AUTO NEGATIVE (NEGATIVE); RBC, URINE AUTO 15 /HPF (0-3); SQUAMOUS EPITHELIAL CELL UR AU 1 /HPF (0-6); WBC, URINE AUTO 2 /HPF (0-3)
[2020-04-30 15:55] LABS: BLOOD UREA NITROGEN 8 MG/DL (7-18); CALCIUM LEVEL 9.1 MG/DL (8.5-10.1); CARBON DIOXIDE LEVEL 30 MEQ/L (21-32); CHLORIDE LEVEL 103 MEQ/L (98-107); CREATININE FOR GFR 0.85 MG/DL (0.55-1.30); GLOMERULAR FILTRATION RATE > 60.0 (>60); GLUCOSE, FASTING 55 MG/DL (70-100); POTASSIUM SERUM 4.1 MEQ/L (3.5-5.1); SODIUM LEVEL 137 MEQ/L (136-145)
[2020-04-30 16:46] LABS: HIV 1&2 SCREEN CENTAUR NEGATIVE (NEGATIVE)
== END ==
LOC: M SFHCPLAZ 13:48
PROVIDERS: ATTEND Internal Medicine Infectious Disease
DX: Z20.6 Contact with and (suspected) exposure to human immunodeficiency virus [HIV] (principal)

== ENCOUNTER → 2020-07-16 | Outpatient (REF) | payer OTHER ==
[~2020-07-16] MED LIST changes: +ARNU1INH; +DESC1TAB; +ONDA4TAB6 PO; +QUET100T2; +TIZA4TAB4; +VENTAER
[2020-08-31 11:35] LABS: HEMOGLOBIN 11.9 g/dl (12.0-15.5); MEAN CORPUSCULAR HEMOGLOBIN 29.8 pg (27.0-33.0); MEAN CORPUSCULAR HGB CONC 32.2 g/dl (32.0-36.5); MEAN CORPUSCULAR VOLUME 92.7 fl (80.0-96.0); PLATELET COUNT, AUTOMATED 354 10^3/uL (150-450); RED BLOOD COUNT 3.99 10^6/uL (4.00-5.40); WHITE BLOOD COUNT 13.3 10^3/uL (4.0-10.0)
[2020-09-10 23:31] LABS: ALBUMIN 3.6 GM/DL (3.2-5.2); ALT/SGPT 16 U/L (12-78); BILIRUBIN,TOTAL 0.2 MG/DL (0.2-1.0); BLOOD UREA NITROGEN 6 MG/DL (7-18); CARBON DIOXIDE LEVEL 30 MEQ/L (21-32); CHLORIDE LEVEL 106 MEQ/L (98-107); CREATININE FOR GFR 0.85 MG/DL (0.55-1.30); GLOMERULAR FILTRATION RATE > 60.0 (>60); GLUCOSE, FASTING 88 MG/DL (70-100); HEPATITIS B SURFACE ANTIGEN NEGATIVE (NEGATIVE); HEPATITIS C VIRUS ABY INDEX 0.2 INDEX (<0.8); HIV 1&2 SCREEN CENTAUR NEGATIVE (NEGATIVE); POTASSIUM SERUM 4.2 MEQ/L (3.5-5.1); SODIUM LEVEL 137 MEQ/L (136-145); TOTAL PROTEIN 7.6 GM/DL (6.4-8.2)
== END ==
LOC: M SFHCPLAZ 15:21
PROVIDERS: ATTEND Internal Medicine Infectious Disease
DX: R63.4 Abnormal weight loss (principal); Z20.6 Contact with and (suspected) exposure to human immunodeficiency virus [HIV]; F32.9 Major depressive disorder, single episode, unspecified; J45.909 Unspecified asthma, uncomplicated

== ENCOUNTER 2020-08-24 13:14 | Emergency (ER) | payer OTHER ==
[~2020-08-24] VITALS: Ht 149.9 cm; Wt 75.2 kg
[~2020-08-24 13:14] MED LIST changes: -ARNU1INH; -DESC1TAB; -ONDA4TAB6 PO; -QUET100T2; -TIZA4TAB4; -VENTAER
[2020-08-24] MEDS ORDERED: ARNU1INH (13:33)
[2020-08-24] MEDS ORDERED: TIZA4TAB4 (13:33)
[2020-08-24] MEDS ORDERED: VENTAER (13:33)
[2020-08-24] MEDS ORDERED: QUET100T2 (13:33)
[2020-08-24] MEDS ORDERED: BUPR150T3 (13:33)
[2020-08-24] MEDS ORDERED: DESC1TAB (13:33)
[2020-08-24] MEDS ORDERED: ONDANSETRON 4MG/2ML VIAL IV ONE (13:45)
[2020-08-24 14:10] LABS: BASO # 0.1 10^3/uL (0.0-0.2); BASO % 0.5 % (0.0-1.0); EOS # 0.4 10^3/uL (0.0-0.5); EOS % 3.2 % (0.0-3.0); HEMATOCRIT 39.7 % (36.0-47.0); HEMOGLOBIN 12.8 g/dl (12.0-15.5); LYMPH % 27.2 % (24.0-44.0); MEAN CORPUSCULAR HEMOGLOBIN 29.6 pg (27.0-33.0); MEAN CORPUSCULAR HGB CONC 32.2 g/dl (32.0-36.5); MEAN CORPUSCULAR VOLUME 91.9 fl (80.0-96.0); MONO # 0.7 10^3/uL (0.0-0.8); MONO % 6.7 % (0.0-5.0); NEUTROPHILS # 6.8 10^3/uL (1.5-8.5); PLATELET COUNT, AUTOMATED 364 10^3/uL (150-450); RED BLOOD COUNT 4.32 10^6/uL (4.00-5.40); WHITE BLOOD COUNT 10.9 10^3/uL (4.0-10.0)
[2020-08-24 14:19] LABS: INR 0.88; PARTIAL THROMBOPLASTIN TIME 26.9 SECONDS (24.2-38.5); PROTHROMBIN TIME 12.1 SECONDS (12.5-14.3)
[2020-08-24] MEDS ORDERED: ISOVUE-370 76% 100ML VIAL As Ordered ONE (14:28)
[2020-08-24 14:36] LABS: ALBUMIN 3.9 GM/DL (3.2-5.2); ALT/SGPT 19 U/L (12-78); BILIRUBIN,DIRECT < 0.1 MG/DL (0.0-0.2); BILIRUBIN,TOTAL 0.3 MG/DL (0.2-1.0); CK-MB VALUE MASS < 1.0 NG/ML (<3.6); CPK CREATINE PHOSPHOKINASE 143 U/L (26-192); LIPASE 54 U/L (73-393); TOTAL PROTEIN 8.2 GM/DL (6.4-8.2); TROPONIN I < 0.02 NG/ML (< 0.10)
--- NOTE | 2020-08-24 14:58 | REPVR ---
PROCEDURE INFORMATION: Exam: CT Abdomen And Pelvis With Contrast Exam date and time: 08/24/2020 2:30 PM Age: 35 years old Clinical indication: Vomiting; Abdominal pain; Additional info: Abd pain/vomiting TECHNIQUE: Imaging protocol: Computed tomography of the abdomen and pelvis with intravenous contrast. Radiation optimization: All CT scans at this facility use at least one of these dose optimization techniques: automated exposure control; mA and/or kV adjustment per patient size (includes targeted exams where dose is matched to clinical indication); or iterative reconstruction. Contrast material: ISOVUE 370; Contrast volume: 100 ml; Contrast route: INTRAVENOUS (IV); COMPARISON: US PELVIC NON-OB COMPLETE 11/25/2019 9:44 AM FINDINGS: Liver: Normal. No mass. Gallbladder and bile ducts: Normal. No calcified stones. No ductal dilation. Pancreas: Normal. No ductal dilation. Spleen: Normal. No splenomegaly. Adrenals: Normal. No mass. Kidneys and ureters: Normal. No hydronephrosis. Stomach and bowel: Unremarkable. No obstruction. No mucosal thickening. Appendix: No evidence of appendicitis. Intraperitoneal space: Unremarkable. No free air. No significant fluid collection. Vasculature: Circumaortic left renal vein, congenital variant. Lymph nodes: Unremarkable. No enlarged lymph nodes. Urinary bladder: Unremarkable as visualized. Reproductive: Physiologic 19 mm right ovarian corpus luteum cyst. Bones/joints: Mild left sacroiliac joint DJD. Soft tissues: Unremarkable. IMPRESSION: No acute abnormality within the abdomen/pelvis. Electronically signed by: Kirstie Elena On 08/24/2020 14:57:38 PM
--- NOTE | 2020-08-24 15:06 | REPVR ---
PROCEDURE INFORMATION: Exam: CT Angiography Chest With Contrast Exam date and time: 08/24/2020 2:30 PM Age: 35 years old Clinical indication: Shortness of breath; Chest pain; Additional info: Cp/sob TECHNIQUE: Imaging protocol: Computed tomographic angiography of the chest with intravenous contrast. 3D rendering (Not supervised by radiologist): MIP and/or 3D reconstructed images were created by the technologist. Radiation optimization: All CT scans at this facility use at least one of these dose optimization techniques: automated exposure control; mA and/or kV adjustment per patient size (includes targeted exams where dose is matched to clinical indication); or iterative reconstruction. Contrast material: ISOVUE 370; Contrast volume: 100 ml; Contrast route: INTRAVENOUS (IV); COMPARISON: No relevant prior studies available. FINDINGS: Pulmonary arteries: Normal. No pulmonary emboli. Aorta: Unremarkable. No aortic aneurysm. No aortic dissection. Lungs: Unremarkable. No consolidation. No masses. Pleural space: Unremarkable. No pneumothorax. No pleural effusion. Heart: Unremarkable. No cardiomegaly. No pericardial effusion. Lymph nodes: Unremarkable. No enlarged lymph nodes. Bones/joints: Unremarkable. No acute fracture. Soft tissues: Unremarkable. IMPRESSION: No evidence of pulmonary embolism. Electronically signed by: Kirstie Elena On 08/24/2020 15:06:23 PM
[2020-08-24] MEDS ORDERED: ONDA4TAB6 PO (15:50)
[2020-08-24 16:04] VITALS: BP 128/77
[2020-08-24 16:12] LABS: HEPATITIS B SURFACE ANTIBODY POSITIVE (POSITIVE)
[2020-08-24 16:24] LABS: HEPATITIS B SURFACE ANTIGEN NEGATIVE (NEGATIVE)
[2020-08-24 16:51] LABS: HEPATITIS C VIRUS ABY INDEX 0.1 INDEX (<0.8)
[2020-08-24 16:52] LABS: HIV 1&2 SCREEN CENTAUR NEGATIVE (NEGATIVE)
--- NOTE | 2020-08-24 18:16 | ECGEPIP ---
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
== END 2020-08-24 16:07 | disposition home or self-care (01) ==
LOC: M ED 13:14
DX: R11.2 Nausea with vomiting, unspecified (principal); R06.02 Shortness of breath; I44.0 Atrioventricular block, first degree; J45.909 Unspecified asthma, uncomplicated; Z91.410 Personal history of adult physical and sexual abuse; F15.11 Other stimulant abuse, in remission; F14.11 Cocaine abuse, in remission; F17.210 Nicotine dependence, cigarettes, uncomplicated; Z91.040 Latex allergy status; Z79.899 Other long term (current) drug therapy
CPT/HCPCS: 71275; 74177; 80047; 80076; 81001; 82550; 82553; 83605; 83690; 84702; 85025; 85610; 85730; 86706; 86780; 86803; 86850; 86900; 86901; 87040; 87340; 87389; 93005; 96374; 99284; J2405; Q9967

== ENCOUNTER → 2020-10-22 | Outpatient (REF) | payer OTHER ==
[~2020-10-22] MED LIST changes: +ARNU1INH; +DESC1TAB; +ONDA4TAB6 PO; +QUET100T2; +TIZA4TAB4; +VENTAER
[2020-10-22 18:15] LABS: BLOOD UREA NITROGEN 10 MG/DL (7-18); CALCIUM LEVEL 9.3 MG/DL (8.5-10.1); CARBON DIOXIDE LEVEL 27 MEQ/L (21-32); CHLORIDE LEVEL 107 MEQ/L (98-107); CREATININE FOR GFR 0.97 MG/DL (0.55-1.30); GLOMERULAR FILTRATION RATE > 60.0 (>60); GLUCOSE, FASTING 92 MG/DL (70-100); POTASSIUM SERUM 4.2 MEQ/L (3.5-5.1); SODIUM LEVEL 140 MEQ/L (136-145)
[2020-10-22 19:06] LABS: HIV 1&2 SCREEN CENTAUR NEGATIVE (NEGATIVE)
== END ==
LOC: M SFHCPLAZ 14:05
PROVIDERS: ATTEND Internal Medicine Infectious Disease
DX: Z20.6 Contact with and (suspected) exposure to human immunodeficiency virus [HIV] (principal)

== ENCOUNTER → 2020-10-23 | Outpatient (REF) | payer OTHER ==
[2020-10-23 11:59] LABS: APPEARANCE, URINE HAZY (CLEAR); BACTERIA, URINE AUTO NEGATIVE (NEGATIVE); BILIRUBIN, URINE AUTO NEGATIVE (NEGATIVE); BLOOD, URINE BLOOD 2+ (NEGATIVE); COLOR, URINE YELLOW (YELLOW); GLUCOSE, URINE (UA) AUTO NEGATIVE (NEGATIVE); KETONE, URINE AUTO NEGATIVE (NEGATIVE); LEUKOCYTE ESTERASE, URINE AUTO NEGATIVE (NEGATIVE); MUCUS, URINE SMALL (NEGATIVE); NITRITE, URINE AUTO NEGATIVE (NEGATIVE); PROTEIN, URINE AUTO 1+ mg/dL (NEGATIVE); RBC, URINE AUTO 27 /HPF (0-3); SPECIFIC GRAVITY URINE AUTO 1.024 (1.002-1.035); SQUAMOUS EPITHELIAL CELL UR AU 1 /HPF (0-6); WBC, URINE AUTO 2 /HPF (0-3)
[2020-10-23 14:06] LABS: CHLAMYDIA DNA AMPLIFICATION NEGATIVE (NEGATIVE); GC DNA AMPLIFICATION NEGATIVE (NEGATIVE)
== END ==
LOC: M SFHCPLAZ 11:04
PROVIDERS: ATTEND Internal Medicine Infectious Disease
DX: Z20.6 Contact with and (suspected) exposure to human immunodeficiency virus [HIV] (principal)

== ENCOUNTER 2021-01-12 12:04 | Emergency (ER) | payer OTHER ==
[~2021-01-12] VITALS: Ht 149.9 cm; Wt 80.0 kg
[~2021-01-12 12:04] MED LIST changes: -BUPR150T3; +BUPR150T4
--- OUTSIDE RECORDS SUMMARY | 2021-01-12 12:10 | CCD ---
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 Name Role Phone Toma Griffin Unavailable PROBLEMS Type Condition ICD9-CM Code HIM17-UU Code Onset Dates Condition S tatus SNOMED Code Notes Problem HIV exposure Z20.6 Active 857668533 Problem Moderate asthma without complication, unspecifie d whether persistent J45.909 Active 832653898 Problem Drug abuse F19.10 Active 16028099 Problem Night sweats R61 Active 50366848 Problem Depressive disorder F32.9 Active 77919973 Problem Irregular periods N92.6 Active 07336405 Problem Weight loss R63.4 Active 70089498 ALLERGIES No Known Allergies ENCOUNTERS from 1985 to 2020-10-31 Encounter Location Date Provider Diagnosis [address] [id number] Sep, Toma Griffin Moderate asthma without complication, un specified whether persistent J45.909 ; HIV exposure Z20.6 ; Night sweats R61 ; Weight loss R63.4 ; Depressive disorder F32.9 ; Drug abuse F19.10 and Encounter for immunization Z23 IMMUNIZATIONS Vaccine Route Administration Date Status Influenza (18 yrs & older) Flublok IM Intramuscular Oct 22, 2020 Administered Influenza (18 yrs & older) Flublok IM Intramuscular Oct 13, 2019 Administered Hepatitis A Adult 1.0mL (Havrix) IM Intramuscular Oct 22, 2020 Administered Hepatitis A Adult 1.0mL (Havrix) IM Intramuscular Oct 13, 2019 Administered SOCIAL HISTORY Tobacco Use: Social History Observation Description Date Details (start date - stop date) Current Smoker Sex Assigned At : Social History Observation Description Sex Assigned At Unknown Education: Question Answer Notes Level of Education: Finished High School Language: Question Answer Notes Languages spoken: Amharic Restoration: Question Answer Notes Restoration 08 Jew Sexual Hx: Question Answer Notes Had sex in the last 12 months (vaginal, oral, or anal)? Yes LMP: Have you ever had an STD? Yes with Men only Use protection? Yes Chlamydia? Yes How often? Some of the time Alcohol Screening: Question Answer Notes Did you have a drink containing alcohol in the past year? No Points 0 Interpretation Negative Tobacco Use: Question Answer Notes Are you a: current smoker Smoking Cessation Information Given 08/18/2019 How many cigarettes a day do you smoke? 6-10 REASON FOR REFERRAL No Information VITAL SIGNS Weight 172 lbs Sep, Height 59 in Sep, BMI 34.74 kg/m2 Sep, Heart Rate 98 /min Sep, Respiratory Rate 18 /min Sep, Temperature 97.7 degrees Fahrenheit Sep, Oximetry 96% Sep, Blood pressure systolic 118 mm Hg Sep, Blood pressure diastolic 72 mm Hg Sep, MEDICATIONS Medication SIG (Take, Route, Frequency, Duration) Notes Start Da te End Date Status Descovy 200-25 MG TAKE ONE TABLET BY MOUTH EVERY DAY for 30 Active Ventolin HFA 108 (90 Base) MCG/ACT 2 puffs as needed Inhalation liss ry 6 hrs Active Gabapentin 800 MG 1 tablet Orally three times daily Active Arnuity Ellipta 50 MCG/ACT 2 puffs Inhalation Once a day for 30 Days Active Truvada 200-300 MG 1 tablet Orally Once a day for 30 day(s) Sep, Active Albuterol Sulfate HFA 108 (90 Base) MCG/ACT 2 puffs as needed Inhalation every 6 hrs prn for 30 Days Active PROCEDURES Procedure Date Ordered Result Body Site Immunization: Havrix Adult 1.0mL IM (Hepatitis A) 2020-10-22 N/A Immunization: Flublok Quadrivalent (18 years & older) 0.5mL IM (Influenza) 2020-10-22 N/A RESULTS REASON FOR VISIT follow up MEDICAL (GENERAL) HISTORY Type Description Date Medical History Depression FU at [facility] clinic Luis Hernandez but ot since 11/2018 Medical History Anxiety Medical History Hx STD gonorrhea/ Chlamydia 2009 Medical History Multiple tatoos Medical History Sleep apnea on home sleep study 2017 ? C PAP Surgical History No Surgical history information Hospitalization History Heart issues Goals Section No Information Health Concerns No Information MEDICAL EQUIPMENT No Information MENTAL STATUS No Information FUNCTIONAL STATUS No Information ASSESSMENTS Encounter Date Diagnosis Assessment Notes Treatment Notes Treatm ent Clinical Notes Sep, Moderate asthma without comp lication, unspecified whether persistent (ICD-10 - J45.909) Asked for refill on inhalers which were sent to the pharmacy. Sep, HIV exposure (ICD-10 - Z20.6) HIV AB/ RNA negative, she was on Truvada one tablet daily , switched to descovy as safer drug but had side effects. I recommended condom use and contraception. She does not have much sex with HIV positive partner , they have been together for over a year. She is not taking descovy , it made her sick wants to go back to Truvada Sep, Night sweats (ICD-10 - R61) Resolved hiv negative TB GOLD was negative 07/2019Sep, Weight loss (ICD-10 - R63.4) Sep, Depressive disorder (ICD-10 - F32.9) Patient encouraged to follow-up with mental health to reestablish care either at [facility]. Not on any mental health meds , not seeing psychiatrist either. Does not think needs to go, going to court to be able to see 2 youngest kids who are with father Pritesh Sep, Drug abuse (ICD-10 - F19.10) No recent use Sep, Encounter for immunization (ICD-10 - Z23) Sep, Other Referral to [facility] she will RS her appt, she thinks she is will have test PLAN OF TREATMENT Medication Medication Name Sig Start Date Stop Date Arnuity Ellipta 50 MCG/ACT 2 puffs Inhalation Once a day for 30 Days Truvada 200-300 MG 1 tablet Orally Once a day for 30 day(s) 2019 Albuterol Sulfate HFA 108 (90 Base) MCG/ACT 2 puffs as needed Inhalation every 6 hrs prn for 30 Days Treatment Notes Assessment Notes Clinical Notes Moderate asthma without complication, unspecified whet her persistent Asked for refill on inhalers which were sent to the pharmacy. HIV exposure HIV AB/ RNA negative , she was on Truvada one tablet daily , switched to descovy as safer drug but had side effects. I recommended condom use and contraception. She does not have much sex with HIV positive partner , they have been together for over a year. She is not taking descovy , it made her sick wants to go back to Truvada Night sweats Resolved hiv negative TB GOL D was negative 07/2019 Depressive disorder Patient encouraged to follow -up with mental health to reestablish care either at [facility] at the community clinic. Not on any mental health meds , not seeing psychiatrist either. Does not think needs to go, going to court to be able to see 2 youngest kids who are with father Pritesh Drug abuse No recent use Next Appt Details 3 Months Reason: Provider Name:Toma Griffin, 2020-12- 2 01:30:00 PM, [address] [place], [address], Insurance Providers Payer Name Payer Address Payer Phone Insured Name Patient Relati onship to Insured Coverage Start Date Coverage End Date [employer] [employer] [facility] [address] [facility] [phone] CRUZ SAXENA self
--- OUTSIDE RECORDS SUMMARY | 2021-01-12 12:11 | CCD ---
Author Author [facility] Organization [facility] Address Unknown Phone Unavailable Care Team Providers Care Clinical Audiologist Name Role Phone Marco AMildred Unavailable Екатерина Devlin Unavailable Pola Ashraf NP Unavailable Unavailable Re-disclosure Warning The records that you are about to access may contain information from federally-assisted alcohol or drug abuse programs. If such information is present, then the following federally mandated warning applies: This information has been disclosed to you from records protected by federal confidentiality rules (42 CFR part 2). The federal rules prohibit you from making any further disclosure of this information unless further disclosure is expressly permitted by the written consent of the person to whom it pertains or as otherwise permitted by 42 CFR part 2. A general authorization for the release of medical or other information is NOT sufficient for this purpose. The Federal rules restrict any use of the information to criminally investigate or prosecute any alcohol or drug abuse patient.The records that you are about to access may contain highly sensitive health information, the redisclosure of which is protected by Article 27-F of the [facility] Public Health law. If you continue you may have access to information: Regarding HIV / AIDS; Provided by facilities licensed or operated by the [facility] Office of Mental Health; or Provided by the [facility] Office for People With Developmental Disabilities. If such information is present, then the following [facility] mandated warning applies: This information has been disclosed to you from confidential records which are protected by state law. State law prohibits you from making any further disclosure of this information without the specific written consent of the person to whom it pertains, or as otherwise permitted by law. Any unauthorized further disclosure in violation of state law may result in a fine or senior care sentence or both. A general authorization for the release of medical or other information is NOT sufficient authorization for further disc losure. Family History Family Member Name Family Member Gender Family Member Status Date o f Status Description Data Source(s) Unknown Male Problem [facility] ([facility] Encounters Encounter Providers Location Date Indications Data Source(s ) Unknown [address] [facility] [address] 10/26/2020 12:00:00 AM EST eCW1 ([facility]) Outpatient [address] [facility] [address] 10/22/2020 12:00:00 AM EST eCW1 ([facility]) Unknown [address] [facility] [address] 10/01/2020 12:00:00 AM EST eCW1 ([facility]) Unknown [address] [facility] [address] 08/31/2020 12:00:00 AM EDT eCW1 ([facility]) [facility] [place] [address] [facility] [address] 08/30/2020 12:00:00 AM EDT eCW1 ([facility]) Psychiatric Diagnostic Evaluation with Medical Service s Attender: [facility] 08/16/2020 10:00:00 AM EDT - 08/16/2020 10:00:00 AM EDT [facility] ([facility]) Attender: Terrance Ashraf NP 08/16/2020 12:00:00 AM EDT [facility] ([facility]) Attender: Екатерина Devlin 08/09/2020 12:00:00 AM EDT [facility] ([facility]) Extended Individual Psychotherapy - 45 min Attender: Chayo corina Claus [facility] 08/03/2020 10:00:00 AM EDT - 08/03/2020 10:00:00 AM EDT [facility] ([facility]) Telemed Diagnostic Eval Attender: Terrance Ashraf NP [facility] 08/02/2020 11:00:00 AM EDT - 08/02/2020 11:00:00 AM EDT [facility] ([facility]) Attender: Terrance Ashraf NP 08/02/2020 12:00:00 AM EDT [facility] ([facility]) [facility] Telemed Diag Eval no med Attender: Екатерина Devlin [facility] 05/14/2020 02:00:00 AM EDT - 05/14/2020 02:00:00 AM EDT [facility] ([facility]) Attender: Екатерина Devlin 05/14/2020 12:00:00 AM EDT [facility] ([facility]) [place] [address] [facility] [place] [address] 05/10/2020 12:00:00 AM EDT eCW1 ([facility]) TEMPMHCTelemed 30" Psychotherapy Attender: Mildred Strickland [facility] 05/07/2020 02:00:00 AM EDT - 05/07/2020 02:00:00 AM EDT [facility] ([facility]) Attender: Mildred Strickland 05/07/2020 12:00:00 AM EDT [facility] ([facility]) [facility] [place] [address] [facility] [address] 05/01/2020 12:00:00 AM EDT eCW1 ([facility]) Outpatient [address] [facility] [place] [address] 04/30/2020 12:00:00 AM EDT eCW1 ([facility]) [facility] [address] [facility] [place] [address] 04/12/2020 12:00:00 AM EDT eCW1 ([facility]) [facility] [address] [facility] [place] [address] 01/13/2020 12:00:00 AM EST eCW1 ([facility]) [facility] [address] [facility] [place] [address] 01/12/2020 12:00:00 AM EST eCW1 ([facility]) [facility] [address] [place] [address] 12/01/2019 12:00:00 AM EST eCW1 ([facility]) Immunizations Vaccine Date Status Description Data Source(s) Hep A, adult 10/22/2020 01:58:00 PM EST completed e [facility] influenza, recombinant, quadrIvalent,injectable, prese rvative free 10/22/2020 01:58:00 PM EST completed eCW1 ([facility]) Hep A, adult 10/22/2020 01:58:00 PM EST completed e CW1 ([facility]) influenza, recombinant, quadrIvalent,injectable, prese rvative free 10/22/2020 01:58:00 PM EST completed eCW1 ([facility]) Medications Medication Brand Name Start Date Product Form Dose Route Admi nistrative Instructions Pharmacy Instructions Status Indications Reaction Description Data Source(s) emtricitabine 200 MG / Tenofovir disopro xil fumarate 300 MG Oral Tablet [Truvada] Truvada 200-300 MG Truvada 200-300 MG 10/22/2020 12:00:00 AM EST 1.0 {tablet} active Truvada 200-300 MG eCW 1 [facility]) emtricitabine 200 MG / Tenofovir disopro xil fumarate 300 MG Oral Tablet [Truvada] Truvada 200-300 MG Truvada 200-300 MG 10/22/2020 12:00:00 AM EST 1.0 {tablet} active Truvada 200-300 MG eCW 1 [facility]) 24 HR Bupropion Hydrochloride 150 MG Ext ended Release Oral Tablet [Wellbutrin] Wellbutrin XL 150 MG Wellbutrin XL 150 MG 04/30/2020 12:00:00 AM EDT 1.0 {tablet_in_the_morning} active Wellbutr in XL 150 MG eCW1 ([facility]) quetiapine 100 MG Oral Tablet [Seroquel] Seroquel 100 MG Ser oquel 100 MG 04/30/2020 12:00:00 AM EDT 1.0 {tablet_at_bedtime} active Seroquel 100 MG eCW1 ([facility]) 24 HR Bupropion Hydrochloride 150 MG Ext ended Release Oral Tablet [Wellbutrin] Wellbutrin XL 150 MG Wellbutrin XL 150 MG 04/30/2020 12:00:00 AM EDT 1.0 {tablet_in_the_morning} active Wellbutr in XL 150 MG eCW1 ([facility]) quetiapine 100 MG Oral Tablet [Seroquel] Seroquel 100 MG Ser oquel 100 MG 04/30/2020 12:00:00 AM EDT 1.0 {tablet_at_bedtime} active Seroquel 100 MG eCW1 ([facility]) quetiapine 100 MG Oral Tablet [Seroquel] Seroquel 100 MG Ser oquel 100 MG 04/30/2020 12:00:00 AM EDT 1.0 {tablet_at_bedtime} active Seroquel 100 MG eCW1 [facility]) 24 HR Bupropion Hydrochloride 150 MG Ext ended Release Oral Tablet [Wellbutrin] Wellbutrin XL 150 MG Wellbutrin XL 150 MG 04/30/2020 12:00:00 AM EDT 1.0 {tablet_in_the_morning} active Wellbutr in XL 150 MG eCW1 [facility]) 24 HR Bupropion Hydrochloride 150 MG Ext ended Release Oral Tablet [Wellbutrin] Wellbutrin XL 150 MG Wellbutrin XL 150 MG 04/30/2020 12:00:00 AM EDT 1.0 {tablet_in_the_morning} active Wellbutr in XL 150 MG eCW1 ([facility]) quetiapine 100 MG Oral Tablet [Seroquel] Seroquel 100 MG Ser oquel 100 MG 04/30/2020 12:00:00 AM EDT 1.0 {tablet_at_bedtime} active Seroquel 100 MG eCW1 ([facility]) Descovy 200-25 MG Descovy 200-25 MG 01/12/2020 12:00:00 AM EST active 1 tab eCW1 ([facility]) Insurance Providers Payer name Policy type / Coverage type Policy ID Covered libertarian ID Covered libertarian's relationship to nation Policy Nation Plan Information [employer] MCDHMO [id number] SP [id number] [facility] O [id number] S [id number] [employer] MCDHMO [id number] SP [id number] [employer] MCDHMO [id number] SP [id number] [employer]AN MCDHMO [id number] SP [id number] [employer] COMM[employer]ITY PLAN MCDO [id number] SP [id number] [facility] [id number] SP [id number] Managed Care - Community Plan [facility] P [id number] S [id number] Medicaid S UNAVAILABLE S UNAVAILA BLE [facility]) O [id number] S [id number] [employer] COMM[employer]AN MCDHMO [id number] SP [id number] [employer] COMM[employer]ITY PLAN MCDHMO [id number] SP [id number] [facility] Community Plan Commercial [id number] Self [id number] [employer] COMM[employer]ITY PLAN MCDO [id number] SP [id number] [facility] Hmo Commercial [id number] Self [id number] [facility] Hmo Commercial [id number] Self [id number] D Managed Care [facility] O [id number] S [id number] Self Pay S UNAVAILABLE S UNAVAILA BLE [employer]ITY PLAN MCDHMO [id number] SP [id number] [facility] Hmo Commercial [id number] Self [id number] D Managed Care [facility] P [id number] S [id number] [facility] Hmo Commercial [id number] Self [id number] 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 [id number] SP [id number] [facility] [id number] SP [id number] [employer] COMMUNITY PLAN MCDHMO [id number] SP [id number] [employer] COMMUNITY PLAN MCDO [id number] SP [id number] Medicaid Medicaid Self MEDICAID [id number] SP [id number] Medicaid Dental O [id number] S [id number] [facility] LIVE PLAN [id number] SP [id number] [facility] LIVE PLAN [id number] SP [id number] Problems, Conditions, and Diagnoses Code Display Name Description Problem Type Effective Dates Data Source(s) F17.200 Nicotine dependence, unspecified, uncomp licated Tobacco Use Disorder, Severe Condition 08/16/2020 12:00:00 AM EDT [facility] ( [facility]) F15.20 Other stimulant dependence, uncomplicate d Stimulant Use Disorder, Moderate: Amphetamine-type substance Condition 08/16/2020 12:00:00 AM EDT [facility] ([facility]) F12.20 Cannabis dependence, uncomplicated Cannabis Use Disorder, Severe Condition 08/16/2020 12:00:00 AM EDT [facility] ([facility]) F20.9 Schizophrenia, unspecified Schizophrenia Condition 08/16/2020 12:00:00 AM EDT [facility] ([facility]) F33.1 Major depressive disorder, recurrent, mo derate Major Depressive Disorder, Recurrent episode, Moderate Condition 08/16/2020 12:00:00 AM EDT [facility] ([facility]) F17.200 Nicotine dependence, unspecified, uncomp licated Tobacco Use Disorder, Severe Condition 05/14/2020 12:00:00 AM EDT [facility] ([facility]) F12.20 Cannabis dependence, uncomplicated Cannabis Use Disorder, Severe Condition 05/14/2020 12:00:00 AM EDT [facility] ([facility]) F32.9 Major depressive disorder, single episod e, unspecified Unspecified depressive Disorder Condition 05/14/2020 12:00:00 AM EDT [facility] ([facility]) F19.10 [id number] Drug abuse Problem 04/30/2020 12:00:00 AM ED T eCW1 [facility]) F19.10 [id number] Drug abuse Problem 04/30/2020 12:00:00 AM ED T eCW1 ([facility]) Surgeries/Procedures Procedure Description Date Indications Data Source(s) Immunization: Flublok Quadrivalent (18 years & older) 0.5mL IM (Influenza) 10/22/2020 12:00:00 AM EST eCW1 ([facility]) HEPATITIS A VACCINE ADULT FOR INTRAMUSCULAR USE 2019 12:00:00 AM EST eCW1 ([facility]) Psychiatric Diagnostic Evaluation with Medical Services 08/16/2020 12:00:00 AM EDT - 08/16/2020 12:00:00 AM EDT [facility] ([facility]) Psychiatric Diagnostic Evaluation with Medical Services 08/16/2020 12:00:00 AM EDT [facility] ([facility]) Extended Individual Psychotherapy - 45 min 08/09/2020 12:00:00 AM EDT - 08/09/2020 12:00:00 AM EDT [facility] ([facility]) Extended Individual Psychotherapy - 45 min 0 12:00:00 AM EDT [facility] ([facility]) Telemed Diagnostic Eval 08/02/2020 12:00 :00 AM EDT - 08/02/2020 12:00:00 AM EDT [facility] ([facility]) Telemed Diagnostic Eval 08/02/2020 12:00:00 AM EDT [facility] ([facility]) [facility] Telemed Diag Eval no med 05/14/2020 12:00:00 AM EDT - 05/14/2020 12:00:00 AM EDT [facility] ([facility]) [facility] Telemed Diag Eval no med 05/14/2020 12:00:00 AM ED T [facility] ([facility]) TEMPMHCTelemed 30" Psychotherapy 020 12:00:00 AM EDT - 05/07/2020 12:00:00 AM EDT [facility] ([facility]) TEMPMHCTelemed 30" Psychotherapy 05/07/2020 12:00:00 A M EDT [facility] ([facility]) Results ID Date Data Source UA URINALYSIS 10/23/2020 12:00:00 AM EST eCW1 ([facility]) Name Value Range Interpretation Code Description Data Joanie rce(s) Supporting Document(s) eCW1 ([facility]) ID Date Data Source CHLAMYDIA & GC DNA AMPLIFICAT 10/23/2020 12:00:00 AM EST eCW 1 ([facility]) Name Value Range Interpretation Code Description Data Joanie rce(s) Supporting Document(s) Chlamydia trachomatis rRNA [Presence] in Unspecified specimen by Probe and target amplification method NEGATIVE NEGATIVE CHLAMYDIA DNA AMPLIFICATION eCW1 ([facility]) ID Date Data Source Basic Metabolic Profile (BMP) 10/22/2020 12:00:00 AM EST eCW 1 ([facility]) Name Value Range Interpretation Code Description Data Joanie rce(s) Supporting Document(s) 92 70-100 GLUCOSE, FASTING eCW1 ([facility]) 10 7-18 BLOOD UREA NITROGEN eCW1 ([facility]) 0.97 0.55-1.30 CREATININE FOR GFR eCW1 ([facility]) 4.2 3.5-5.1 POTASSIUM SERUM eCW1 ([facility]) 140 136-145 SODIUM LEVEL eCW1 ([facility]) > 60.0 >60 GLOMERULAR FILTRATION RATE eCW 1 ([facility]) 107 98-107 CHLORIDE LEVEL eCW1 ([facility]) 9.3 8.5-10.1 CALCIUM LEVEL eCW1 ([facility]) 27 21-32 CARBON DIOXIDE LEVEL eCW1 ([facility]) ID Date Data Source [id number] 10/22/2020 12:00:00 AM EST eCW1 ([facility]) Name Value Range Interpretation Code Description Data Joanie rce(s) Supporting Document(s) eCW1 ([facility]) ID Date Data Source SYPHILIS ANTIBODY (RPR SCREEN) 01/12/2020 12:00:00 AM EST eC W1 ([facility]) Name Value Range Interpretation Code Description Data Joanie rce(s) Supporting Document(s) NONREACTIVE NONREACTIVE SYPHILIS eCW1 ([facility]) Procedure Social History Code Duration Value Status Description Data Source(s ) Smoking 10/22/2020 12:00:00 AM EST Current Smoker completed Curre nt Smoker eCW1 ([facility]) Smoking 10/22/2020 12:00:00 AM EST Current Smoker completed Curre nt Smoker eCW1 ([facility]) Smoking 08/16/2020 12:00:00 AM EDT Smoker, current status unkn own completed Smoker, current status unknown [facility] ([facility]) Smoking 08/09/2020 12:00:00 AM EDT Smoker, current status unkn own completed Smoker, current status unknown [facility] ([facility]) Smoking 08/02/2020 12:00:00 AM EDT Smoker, current status unkn own completed Smoker, current status unknown [facility] ([facility]) Smoking 05/14/2020 12:00:00 AM EDT Smoker, current status unkn own completed Smoker, current status unknown [facility] ([facility]) Smoking 05/07/2020 12:00:00 AM EDT Smoker, current status unkn own completed Smoker, current status unknown [facility] ([facility]) Smoking 01/12/2020 12:00:00 AM EST Current Smoker completed Curre nt Smoker eCW1 ([facility]) Smoking 01/12/2020 12:00:00 AM EST Current Smoker completed Curre nt Smoker eCW1 ([facility]) Smoking 01/12/2020 12:00:00 AM EST Current Smoker completed Curre nt Smoker eCW1 ([facility]) Smoking 01/12/2020 12:00:00 AM EST Current Smoker completed Curre nt Smoker eCW1 ([facility]) Vital Signs ID Date Data Source UNK Name Value Range Interpretation Code Description Data Source(s) Diastolic blood pressure 72 mm[Hg] 72 mm[Hg] eCW1 ([facility]) Systolic blood pressure 118 mm[Hg] 118 mm[Hg] e CW1 ([facility]) Body temperature 97.7 [degF] 97.7 [degF] eCW1 ( [facility]) Respiratory rate 18 /min 18 /min eCW1 ([facility]) Heart rate 98 /min 98 /min eCW1 ([facility]) Body mass index (BMI) [Ratio] 34.74 kg/m2 34.74 kg/m2 eCW1 ([facility]) Body height 59 [in_i] 59 [in_i] eCW1 ([facility]) Body weight 172 [lb_av] 172 [lb_av] eCW1 ([facility]) Diastolic blood pressure 68 mm[Hg] 68 mm[Hg] eCW1 ([facility]) Systolic blood pressure 108 mm[Hg] 108 mm[Hg] e CW1 ([facility]) Body temperature 99.1 [degF] 99.1 [degF] eCW1 ( [facility]) Respiratory rate 18 /min 18 /min eCW1 ([facility]) Heart rate 101 /min 101 /min eCW1 ([facility]) Body mass index (BMI) [Ratio] 35.02 kg/m2 35.02 kg/m2 eCW1 ([facility]) Body height 59 [in_us] 59 [in_us] eCW1 ([facility]) Body weight Measured 173.4 [lb_av] 173.4 [lb_av ] eCW1 [facility]) Patient Treatment Plan of Care Planned Activity Planned Date Details Description Data Source (s) emtricitabine 200 MG / Tenofovir disopro xil fumarate 300 MG Oral Tablet [Truvada] 10/22/2020 12:00:00 AM EST eCW1 ([facility]) emtricitabine 200 MG / Tenofovir disopro xil fumarate 300 MG Oral Tablet [Truvada] 10/22/2020 12:00:00 AM EST eCW1 ([facility]) 24 HR Bupropion Hydrochloride 150 MG Extended Release Oral Tablet [Wellbutrin] 04/30/2020 12:00:00 AM EDT eCW1 ([facility]) quetiapine 100 MG Oral Tablet [Seroquel] 04/30/2020 12:00:00 AM EDT eCW1 ([facility]) 24 HR Bupropion Hydrochloride 150 MG Extended Release Oral Tablet [Wellbutrin] 04/30/2020 12:00:00 AM EDT eCW1 ([facility]) quetiapine 100 MG Oral Tablet [Seroquel] 04/30/2020 12:00:00 AM EDT eCW1 [facility]) 24 HR Bupropion Hydrochloride 150 MG Extended Release Oral Tablet [Wellbutrin] 04/30/2020 12:00:00 AM EDT eCW1 ([facility]) quetiapine 100 MG Oral Tablet [Seroquel] 04/30/2020 12:00:00 AM EDT eCW1 [facility]) 24 HR Bupropion Hydrochloride 150 MG Extended Release Oral Tablet [Wellbutrin] 04/30/2020 12:00:00 AM EDT eCW1 ([facility]) quetiapine 100 MG Oral Tablet [Seroquel] 04/30/2020 12:00:00 AM EDT eCW1 [facility]) Descovy 200-25 MG 01/12/2020 12:00:00 AM EST eCW1 ([facility])
--- OUTSIDE RECORDS SUMMARY | 2021-01-12 12:11 | CCD ---
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.6 Active 212369951 Problem Moderate asthma without complication, unspecifie d whether persistent J45.909 Active 523327786 Problem Drug abuse F19.10 Active 88068541 Problem Night sweats R61 Active 07434633 Problem Depressive disorder F32.9 Active 42358277 Problem Irregular periods N92.6 Active 07674343 Problem Weight loss R63.4 Active 26153570 ALLERGIES No Known Allergies ENCOUNTERS from 1987 to 2020-10-31 Encounter Location Date Provider Diagnosis [address] [address] Sep, Toma Griffin HIV exposure Z20.6 IMMUNIZATIONS Vaccine Route Administration Date Status Influenza [...] School Language: Question Answer Notes Languages spoken: Bahamian Restorationism: Question Answer Notes Restorationism 08 [employer] Sexual Hx: Question Answer Notes Had sex [...] REASON FOR REFERRAL No Information VITAL SIGNS No information MEDICATIONS Medication SIG (Take, Route, Frequency, Duration) [...] hrs prn for 30 Days Active PROCEDURES No Information RESULTS No Results REASON FOR VISIT No Information MEDICAL (GENERAL) HISTORY Type Description Date Medical History Depression FU at [facility] but ot since 11/2018 Medical History Anxiety Medical History Hx STD gonorrhea/ Chlamydia 2009 Medical History Multiple tatoos Medical History Sleep apnea on home sleep study 2016 ? C PAP Surgical History No Surgical history information Hospitalization History Heart issues Goals Section No Information Health Concerns No Information MEDICAL EQUIPMENT No Information MENTAL STATUS No Information FUNCTIONAL STATUS No Information ASSESSMENTS Encounter Date Diagnosis Assessment Notes Treatment Notes Treatm ent Clinical Notes Sep, HIV exposure (ICD-10 - Z20.6) PLAN OF TREATMENT Medication Medication Name Sig Start Date Stop Date Arnuity Ellipta 50 MCG/ACT 2 puffs Inhalation Once a day for 30 Days Truvada 200-300 MG 1 tablet Orally Once a day for 30 day(s) 2019 Albuterol Sulfate HFA 108 (90 Base) MCG/ACT 2 puffs as needed Inhalation every 6 hrs prn for 30 Days Next Appt Details Provider Name:Toma Griffin, 2020-02-2 2 01:30:00 PM, [facility] [place], [address], Insurance Providers Payer Name Payer Address Payer Phone Insured Name Patient Relati onship to Insured Coverage Start Date Coverage End Date [facility] [employer] [facility] [address] [facility] [address] [phone] [employer] self
[2021-01-12] MEDS ORDERED: AMOX875T (12:14)
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
[2021-01-12] MEDS ORDERED: KETO10TAB PO (14:22)
[2021-01-12] MEDS ORDERED: ACETAMINOPHEN 325 MG TAB PO ONE (14:30)
[2021-01-12 14:33] VITALS: BP 144/85
== END 2021-01-12 14:35 | disposition home or self-care (01) ==
LOC: M ED 12:04
DX: S13.4XXA Sprain of ligaments of cervical spine, initial encounter (principal); V49.10XA Passenger injured in collision with unspecified motor vehicles in nontraffic accident, initial encounter; Y92.9 Unspecified place or not applicable; Y93.9 Activity, unspecified; Y99.9 Unspecified external cause status; Z79.51 Long term (current) use of inhaled steroids; Z79.2 Long term (current) use of antibiotics; Z79.899 Other long term (current) drug therapy; Z91.040 Latex allergy status

== ENCOUNTER → 2021-01-21 | Outpatient (REF) | payer OTHER ==
[~2021-01-21] MED LIST changes: +AMOX875T; +KETO10TAB PO
[2021-01-21 18:21] LABS: HEMATOCRIT 40.1 % (36.0-47.0); HEMOGLOBIN 12.3 g/dl (12.0-15.5); MEAN CORPUSCULAR HEMOGLOBIN 29.3 pg (27.0-33.0); MEAN CORPUSCULAR HGB CONC 30.7 g/dl (32.0-36.5); MEAN CORPUSCULAR VOLUME 95.5 fl (80.0-96.0); PLATELET COUNT, AUTOMATED 335 10^3/uL (150-450)
[2021-01-21 18:23] LABS: WHITE BLOOD COUNT 11.9 10^3/uL (4.0-10.0)
[2021-01-21 18:28] LABS: APPEARANCE, URINE CLEAR (CLEAR); BACTERIA, URINE AUTO NEGATIVE (NEGATIVE); BILIRUBIN, URINE AUTO NEGATIVE (NEGATIVE); BLOOD, URINE BLOOD 1+ (NEGATIVE); COLOR, URINE YELLOW (YELLOW); GLUCOSE, URINE (UA) AUTO NEGATIVE (NEGATIVE); KETONE, URINE AUTO NEGATIVE (NEGATIVE); LEUKOCYTE ESTERASE, URINE AUTO NEGATIVE (NEGATIVE); NITRITE, URINE AUTO NEGATIVE (NEGATIVE); PROTEIN, URINE AUTO NEGATIVE (NEGATIVE); RBC, URINE AUTO 5 /HPF (0-3); SPECIFIC GRAVITY URINE AUTO 1.013 (1.002-1.035); SQUAMOUS EPITHELIAL CELL UR AU 1 /HPF (0-6); UROBILINOGEN, URINE AUTO 0.2 mg/dL (0.0-2.0); WBC, URINE AUTO 0 /HPF (0-3)
[2021-01-21 18:40] LABS: AMPHETAMINES URINE REFLEX NEGATIVE (NEGATIVE); BARBITURATES URINE REFLEX NEGATIVE (NEGATIVE); BENZODIAZEPINES URINE REFLEX NEGATIVE (NEGATIVE); COCAINE METABOLITE URINE REFLE NEGATIVE (NEGATIVE); METHADONE URINE REFLEX NEGATIVE (NEGATIVE); OPIATES URINE REFLEX NEGATIVE (NEGATIVE); PHENCYCLIDINE URINE REFLEX NEGATIVE (NEGATIVE)
[2021-01-21 18:52] LABS: BLOOD UREA NITROGEN 10 MG/DL (7-18); CALCIUM LEVEL 8.7 MG/DL (8.5-10.1); CARBON DIOXIDE LEVEL 31 MEQ/L (21-32); CHLORIDE LEVEL 102 MEQ/L (98-107); CREATININE FOR GFR 0.94 MG/DL (0.55-1.30); GLOMERULAR FILTRATION RATE > 60.0 (>60); GLUCOSE, FASTING 96 MG/DL (70-100); POTASSIUM SERUM 4.4 MEQ/L (3.5-5.1); SODIUM LEVEL 139 MEQ/L (136-145)
[2021-01-21 19:27] LABS: CANNABINOIDS URINE REFLEX PENDING CONFIRMATION (NEGATIVE)
[2021-01-21 19:44] LABS: HIV 1&2 SCREEN CENTAUR NEGATIVE (NEGATIVE)
[2021-01-21 20:50] LABS: ATYPICAL LYMPH 5 % (0-5); EOSINOPHILS 3 % (0-3); LYMPHOCYTES 52 % (16-44); MONOCYTES 4 % (0-5); NEUTROPHILS 36 % (28-66)
[2021-01-21 20:52] LABS: HYPOCHROMASIA 1+; PLATELET ESTIMATE NORMAL (NORMAL)
[2021-01-21 21:19] LABS: CHLAMYDIA DNA AMPLIFICATION NEGATIVE (NEGATIVE); GC DNA AMPLIFICATION NEGATIVE (NEGATIVE)
[2021-01-25 04:06] LABS: Cannabinoid Positive (.); GC Carboxy THC 532 ng/mL (Cutoff=10)
== END ==
LOC: M SFHCPLAZ 14:34
PROVIDERS: ATTEND Internal Medicine Infectious Disease
DX: R30.0 Dysuria (principal); Z20.6 Contact with and (suspected) exposure to human immunodeficiency virus [HIV]; F19.10 Other psychoactive substance abuse, uncomplicated
CPT/HCPCS: 36415; 80048; 80307; 81001; 85025; 86780; 87086; 87389; 87491; 87591; G0480

== ENCOUNTER → 2021-04-22 | Outpatient (REF) | payer OTHER ==
[~2021-04-22] MED LIST changes: +BUPR150T12; -BUPR150T4; +EMTR1TAB16 PO; +GABA-283 PO; -GABA-845 PO; -TRUVTAB PO
[2021-04-22 15:17] LABS: HEMOGLOBIN 12.2 g/dl (12.0-15.5); MEAN CORPUSCULAR HEMOGLOBIN 29.9 pg (27.0-33.0); MEAN CORPUSCULAR HGB CONC 32.1 g/dl (32.0-36.5); MEAN CORPUSCULAR VOLUME 93.1 fl (80.0-96.0); PLATELET COUNT, AUTOMATED 346 10^3/uL (150-450); RED BLOOD COUNT 4.08 10^6/uL (4.00-5.40); WHITE BLOOD COUNT 12.2 10^3/uL (4.0-10.0)
[2021-04-22 15:42] LABS: ALBUMIN 3.5 GM/DL (3.2-5.2); ALT/SGPT 31 U/L (12-78); BILIRUBIN,TOTAL 0.3 MG/DL (0.2-1.0); BLOOD UREA NITROGEN 7 MG/DL (7-18); CALCIUM LEVEL 8.8 MG/DL (8.5-10.1); CARBON DIOXIDE LEVEL 26 MEQ/L (21-32); CHLORIDE LEVEL 107 MEQ/L (98-107); CREATININE FOR GFR 0.73 MG/DL (0.55-1.30); GLOMERULAR FILTRATION RATE > 60.0 (>60); GLUCOSE, FASTING 82 MG/DL (70-100); POTASSIUM SERUM 4.2 MEQ/L (3.5-5.1); SODIUM LEVEL 139 MEQ/L (136-145); TOTAL PROTEIN 7.3 GM/DL (6.4-8.2)
[2021-04-22 15:52] LABS: HEPATITIS B SURFACE ANTIBODY POSITIVE (POSITIVE)
[2021-04-22 16:03] LABS: HEPATITIS B SURFACE ANTIGEN NEGATIVE (NEGATIVE)
[2021-04-22 16:31] LABS: HEPATITIS C VIRUS ABY INDEX 0.1 INDEX (<0.8); HIV 1&2 SCREEN CENTAUR NEGATIVE (NEGATIVE)
== END ==
LOC: M SFHCPLAZ 14:02
PROVIDERS: ATTEND Internal Medicine Infectious Disease
DX: Z20.6 Contact with and (suspected) exposure to human immunodeficiency virus [HIV] (principal)

== ENCOUNTER → 2021-07-02 | Outpatient (CLI) | payer OTHER ==
[~2021-07-02] MED LIST changes: +CEPH500C PO; +HYDR-4571 PO; +PARO20TA4 PO; +TIZA10TA; +TIZA4CAP PO; -TIZA4TAB4
== END ==
LOC: M RAD 14:19
PROVIDERS: ATTEND Physician Assistant Medical
DX: R06.00 Dyspnea, unspecified (principal)

== ENCOUNTER 2021-07-14 17:16 | Emergency (ER) | payer OTHER ==
[~2021-07-14] VITALS: Ht 149.9 cm; Wt 81.2 kg
[~2021-07-14 17:16] MED LIST changes: -CEPH500C PO; -HYDR-4571 PO; -PARO20TA4 PO; -TIZA10TA; -TIZA4CAP PO; +TIZA4TAB4
[2021-07-14 17:17] VITALS: BP 161/92
== END 2021-07-14 21:43 | disposition left against medical advice (07) ==
LOC: M ED 17:16
DX: Z53.21 Procedure and treatment not carried out due to patient leaving prior to being seen by health care provider (principal)

== ENCOUNTER 2021-11-01 10:40 | Emergency (ER) | payer OTHER ==
[~2021-11-01] VITALS: Ht 149.9 cm; Wt 83.6 kg
--- OUTSIDE RECORDS SUMMARY | 2021-11-01 10:51 | CCD ---
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 Name Role Phone Brianna Banuelos Unavailable PROBLEMS Type Condition ICD9-CM Code [id number] Code Onset Dates Condition S tatus W/U Status Risk SNOMED Code Notes Problem HIV exposure Z20.6 Active confirmed 9111296 02 Problem Moderate asthma without complication, unspecifie d whether persistent J45.909 Active confirmed 856225683 Problem Drug abuse F19.10 Active confirmed 67460453 Problem Night sweats R61 Active confirmed 4576290 0 Problem Depressive disorder F32.9 Active confirmed 80022924 Problem Irregular periods N92.6 Active confirmed 80 401622 Problem Weight loss R63.4 Active confirmed 59402889 ALLERGIES No Known Allergies ENCOUNTERS from 1987 to 2021-08-09 Encounter Location Date Provider Diagnosis [address] [phone] [place] [address] Jul, Brianna Banuelos IMMUNIZATIONS Vaccine Route Administration Date Status Influenza 18 yrs & older Flublok IM Intramuscular Oct 22, 2020 Administered Influenza 18 yrs & older Flublok IM Intramuscular Oct 13, 2019 Administered Hepatitis A Adult 1.0mL Havrix IM Intramuscular Oct 22, 2020 Administered Hepatitis A Adult 1.0mL Havrix IM Intramuscular Oct 13, 2019 Administered SOCIAL HISTORY Tobacco Use: Social History Observation Description Date Details (start date - stop date) Current Smoker Sex Assigned At : Social History Observation Description Sex Assigned At Unknown Education: Question Answer Notes Level of Education: Finished High School Language: Question Answer Notes Languages spoken: Nepalese Alevism: Question Answer Notes Alevism 08 Druze Sexual Hx: Question Answer Notes Had sex [...] Notes Start Da te End Date Status Truvada 200-300 MG 1 tablet Orally Once a day for 30 day(s) Active Ventolin HFA 108 (90 Base) MCG/ACT 2 puffs as needed Inhalation liss ry 6 hrs Active Naproxen 375 MG 1 tablet with food or milk a s needed Orally every 12 hrs for 30 Days Active Arnuity Ellipta 50 MCG/ACT 2 puffs Inhalation Once a day for 30 Days Active Doxycycline Hyclate 100 MG 1 tablet Orally Twice a day for 7 day (s) March, Active Albuterol Sulfate HFA 108 (90 Base) MCG/ACT 2 puffs as needed Inhalation every 6 hrs prn for 30 Days Active Gabapentin 800 MG 1 tablet Orally three times daily Active PROCEDURES No Information RESULTS No Results REASON FOR VISIT No Show Informatioal Letter MEDICAL (GENERAL) HISTORY Type Description Date Medical History Depression FU at [facility] clinic Luis Hernandez but ot since 11/2018 [...] No Information FUNCTIONAL STATUS No Information ASSESSMENTS No Information PLAN OF TREATMENT Medication Medication Name Sig Start Date Stop Date Truvada 200-300 MG 1 tablet Orally Once a day for 30 day(s) Doxycycline Hyclate 100 MG 1 tablet Orally Twice a day for 7 day(s) March, Albuterol Sulfate HFA 108 (90 Base) MCG/ACT 2 puffs as needed Inhalation every 6 hrs prn for 30 Days Arnuity Ellipta 50 MCG/ACT 2 puffs Inhalation Once a day for 30 Days Naproxen 375 MG 1 tablet with food or milk a s needed Orally every 12 hrs for 30 Days Insurance Providers Payer Name Payer Address Payer Phone Insured Name Patient Relati onship to Insured Coverage Start Date Coverage End Date [facility] COMMUNITY PLAN [facility] [address] [facility] [id number] [employer] self
--- OUTSIDE RECORDS SUMMARY | 2021-11-01 10:51 | CCD ---
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 Role Phone DRAZEK, I SETH PA Unavailable Unavailable DRAZEK, I SETH PA Unavailable Unavailable DRAZEK, I SETH PA Unavailable Unavailable DRAZEK, I SETH PA Unavailable Unavailable DRAZEK, I SETH PA Unavailable Unavailable DRAZEK, I SETH PA Unavailable Unavailable DRAZEK, I SETH PA Unavailable Unavailable DRAZEK, I SETH PA Unavailable Unavailable DRAZEK, I SETH PA Unavailable Unavailable DRAZEK, I SETH PA Unavailable Unavailable DRAZEK, I SETH PA Unavailable Unavailable DRAZEK, I SETH PA Unavailable Unavailable DRAZEK, I SETH PA Unavailable Unavailable DRAZEK, I SETH PA Unavailable Unavailable DRAZEK, I SETH PA Unavailable Unavailable DRAZEK, I SETH PA Unavailable Unavailable DRAZEK, I SETH PA Unavailable Unavailable DRAZEK, I SETH PA Unavailable Unavailable DRAZEK, I SETH PA Unavailable Unavailable DRAZEK, I SETH PA Unavailable Unavailable DRAZEK, I SETH PA Unavailable Unavailable DRAZEK, I SETH PA Unavailable Unavailable DRAZEK, I SETH PA Unavailable Unavailable DRAZEK, I SETH PA Unavailable Unavailable DRAZEK, I SETH PA Unavailable Unavailable DRAZEK, I SETH PA Unavailable Unavailable DRAZEK, I SETH PA Unavailable Unavailable DRAZEK, I SETH PA Unavailable Unavailable DRAZEK, I SETH PA Unavailable Unavailable DRAZEK, I SETH PA Unavailable Unavailable Re-disclosure Warning The records that [...] is protected by Article 27-F of the [facility] Public Health law. If you continue you may have access to information: Regarding HIV / AIDS; Provided by facilities licensed or operated by the [facility] Office of Mental Health; or Provided by the [facility] Office for People With Developmental Disabilities. If such information is present, then the following [facility] mandated warning applies: This information has been [...] law may result in a fine or snf sentence or both. A general authorization for the release of medical or other information is NOT sufficient authorization for further disc losure. Family History Family Member Name Family Member Gender Family Member Status Date o f Status Description Data Source(s) Unknown Male Problem MEDENT ([facility] Encounters Encounter Providers Location Date Indications Data Source(s ) Unknown [address] [facility] [place] [address] 10/30/2021 12:00:00 AM EST eCW1 ([facility] hospital) Unknown [address] [facility] [place] [address] 08/09/2021 12:00:00 AM EDT [facility]CW[facility] [place] [address] [facility] [address] 07/22/2021 12:00:00 AM EDT eCW1 (Critical access hospital) [place] [address] [facility] [address] 06/11/2021 12:00:00 AM EDT eCW1 (Critical access hospital) [place] [address] [facility] [address] 04/26/2021 12:00:00 AM EDT eCW1 (Critical access hospital) [place] [address] [facility] [address] 04/23/2021 12:00:00 AM EDT eCW1 (Critical access hospital) [place] [address] [facility] [address] 04/22/2021 12:00:00 AM EDT eCW1 (Critical access hospital) Office Visit Attender: SETH OGDEN Physical Therapy 2020 06:00:00 PM EST [facility] ([facility]) [place] [address] [facility] [address] 01/21/2021 12:00:00 AM EST eCW1 (Critical access hospital) [place] [address] [facility] [address] 10/26/2020 12:00:00 AM EST eCW1 (Critical access hospital) [place] [address] [facility] [address] 10/22/2020 12:00:00 AM EST eCW1 (Critical access hospital) [place] [address] [facility] [address] 10/01/2020 12:00:00 AM EST eCW1 (Critical access hospital) Immunizations Vaccine Date Status Description Data Source(s) COVID-19 VACCINE Moderna 06/24/2021 12:00:00 AM EDT completed [facility] Vaccine Series Complete: NOThis Data was Submitted to [facility] Via MEDOVENT. Hep A, adult 10/22/2020 01:58:00 PM EST completed e CW1 ([facility]) influenza, recombinant, quadrIvalent,injectable, prese rvative free 10/22/2020 01:58:00 PM EST completed eCW1 ([facility]) Hep A, adult 10/22/2020 01:58:00 PM EST completed e CW1 ([facility]) influenza, recombinant, quadrIvalent,injectable, prese rvative free 10/22/2020 01:58:00 PM EST completed eCW1 ([facility]) Hep A, adult 10/22/2020 01:58:00 PM EST completed e CW1 ([facility]) influenza, recombinant, quadrIvalent,injectable, prese rvative free 10/22/2020 01:58:00 PM EST completed eCW1 ([facility]) Hep A, adult 10/22/2020 01:58:00 PM EST completed e CW1 ([facility]) influenza, recombinant, quadrIvalent,injectable, prese rvative free 10/22/2020 01:58:00 PM EST completed eCW1 ([facility]) Hep A, adult 10/22/2020 01:58:00 PM EST completed e CW1 ([facility]) influenza, recombinant, quadrIvalent,injectable, prese rvative free 10/22/2020 01:58:00 PM EST completed eCW1 ([facility]) Hep A, adult 10/22/2020 01:58:00 PM EST completed e CW1 ([facility]) influenza, recombinant, quadrIvalent,injectable, prese rvative free 10/22/2020 01:58:00 PM EST completed eCW1 ([facility]) Hep A, adult 10/22/2020 01:58:00 PM EST completed e CW1 ([facility]) influenza, recombinant, quadrIvalent,injectable, prese rvative free 10/22/2020 01:58:00 PM EST completed eCW1 ([facility]) Hep A, adult 10/22/2020 01:58:00 PM EST completed e CW1 ([facility]) influenza, recombinant, quadrIvalent,injectable, prese rvative free 10/22/2020 01:58:00 PM EST completed eCW1 ([facility]) Hep A, adult 10/22/2020 01:58:00 PM EST completed e CW1 ([facility]) influenza, recombinant, quadrIvalent,injectable, prese rvative free 10/22/2020 01:58:00 PM EST completed eCW1 ([facility]) Hep A, adult 10/22/2020 01:58:00 PM EST completed e CW1 ([facility]) influenza, recombinant, quadrIvalent,injectable, prese rvative free 10/22/2020 01:58:00 PM EST completed eCW1 ([facility]) Medications Medication Brand Name Start Date Product Form Dose Route Admi nistrative Instructions Pharmacy Instructions Status Indications Reaction Description Data Source(s) doxycycline hyclate 100 MG Oral Tablet Doxycycline Hyc late 100 MG Doxycycline Hyclate 100 MG 04/26/2021 12:00:00 AM EDT 1.0 {tablet} active Doxycycline Hyclate 100 MG eCW1 ([facility]) doxycycline hyclate 100 MG Oral Tablet Doxycycline Hyc late 100 MG Doxycycline Hyclate 100 MG 04/26/2021 12:00:00 AM EDT 1.0 {tablet} active Doxycycline Hyclate 100 MG eCW1 ([facility]) doxycycline hyclate 100 MG Oral Tablet Doxycycline Hyc late 100 MG Doxycycline Hyclate 100 MG 04/26/2021 12:00:00 AM EDT 1.0 {tablet} active Doxycycline Hyclate 100 MG eCW1 ([facility]) doxycycline hyclate 100 MG Oral Tablet Doxycycline Hyc late 100 MG Doxycycline Hyclate 100 MG 04/26/2021 12:00:00 AM EDT 1.0 {tablet} active Doxycycline Hyclate 100 MG eCW1 ([facility]) doxycycline hyclate 100 MG Oral Tablet Doxycycline Hyc late 100 MG Doxycycline Hyclate 100 MG 04/26/2021 12:00:00 AM EDT 1.0 {tablet} active Doxycycline Hyclate 100 MG eCW1 ([facility]) Cyclobenzaprine hydrochloride 5 MG Oral Tablet Cyclobenzapri ne HCL 01/22/2021 12:00:00 AM EST ORAL active M EDENT ([facility]) Naproxen 375 MG Oral Tablet Naproxen 375 MG 01/21/2021 12:00:00 AM EST active Naproxen 375 MG eCW1 ([facility]) emtricitabine 200 MG / Tenofovir disopro xil fumarate 300 MG Oral Tablet [Truvada] Truvada 200-300 MG Truvada 200-300 MG 10/22/2020 12:00:00 AM EST 1.0 {tablet} active Truvada 200-300 MG eCW 1 ([facility]) emtricitabine 200 MG / Tenofovir disopro xil fumarate 300 MG Oral Tablet [Truvada] Truvada 200-300 MG Truvada 200-300 MG 10/22/2020 12:00:00 AM EST 1.0 {tablet} active Truvada 200-300 MG eCW 1 ([facility]) Insurance Providers Payer name Policy type / Coverage type Policy ID Covered democrat ID Covered democrat's relationship to nation Policy Nation Plan Information [facility] [id number] Self 1 [id number] [facility] [id number] SP [id number] [facility] [id number] SP [id number] [facility] Commercial [id number] Self [id number] [facility] Commercial [id number] Self 1 [id number] [facility] COMM[facility] [id number] SP [id number] [facility] Commercial [id number] Self 1 [id number] D Managed Care [facility] [id number] [facility] [id number] SP [id number] [facility] MCDHMO [id number] SP [id number] UN COMMUNITY PLAN MCDHMO [id number] SP [id number] UN COMMUNITY PLAN MCDO [id number] SP [id number] Self Pay S UNAVAILABLE S UNAVAILA BLE D [facility] P [id number] S [id number] UN COMMUNITY PLAN MCDHMO [id number] SP [id number] UN COMMUNITY PLAN MCDHMO [id number] SP [id number] Medicaid Medicaid [id number] Self MEDICAID [id number] SP [id number] Medicaid Dental O [id number] S [id number] [employer] PLAN [id number] SP [id number] [employer] [id number] SP [id number] [facility] COMMUNITY [facility]AN MCDHMO [id number] SP [id number] [facility] COMMUNITY [facility]AN MCDHMO [id number] SP [id number] [employer] NO FAULT [id number] SP [id number] [employer] NO FAULT [id number] SP [id number] UN COMMUNITY PLAN MCDO [id number] SP [id number] [facility] O [id number] S [id number] [facility] COMMUNITY [facility]AN [facility] [id number] SP [id number] Managed Care Community Plan [facility] P [id number] S [id number] Medicaid S UNAVAILABLE S UNAVAILA BLE [facility] O [id number] S [id number] [facility] Community Plan Commercial [id number] Self 1 [id number] UN COMMUNITY PLAN [facility] [id number] SP [id number] Problems, Conditions, and Diagnoses No Information Surgeries/Procedures Procedure Description Date Indications Data Source(s) MRI Lower Extremity Other Than Joint 02/07/2021 12:00: 00 AM EST MEDENT ([facility]) RADEX FOOT COMPLETE MINIMUM 3 VIEWS 01/22/2021 12:00:0 0 AM EST MEDENT ([facility]) Immunization: Flublok Quadrivalent (18 years & older) 0.5mL IM (Influenza) 10/22/2020 12:00:00 AM EST eCW1 ([facility]) HEPATITIS A VACCINE ADULT FOR INTRAMUSCULAR USE 2019 12:00:00 AM EST eCW1 ([facility]) Results ID Date Data Source SYPHILIS ANTIBODY (RPR SCREEN) 04/22/2021 12:00:00 AM EDT eC W1 ([facility]) Name Value Range Interpretation Code Description Data Joanie rce(s) Supporting Document(s) NONREACTIVE NONREACTIVE SYPHILIS eCW1 ([facility]) ID Date Data Source [id number] 04/22/2021 12:00:00 AM EDT eCW1 ([facility]) Name Value Range Interpretation Code Description Data Joanie rce(s) Supporting Document(s) eCW1 ([facility]) ID Date Data Source HEPATITIS C ANTIBODY INDEX 04/22/2021 12:00:00 AM EDT eCW1 ( [facility]) Name Value Range Interpretation Code Description Data Joanie rce(s) Supporting Document(s) 0.1 <0.8 HEPATITIS C VIRUS RAFFY INDEX eC W1 ([facility]) ID Date Data Source HEPATITIS B SURFACE ANTIGEN 04/22/2021 12:00:00 AM EDT eCW1 ([facility]) Name Value Range Interpretation Code Description Data Joanie rce(s) Supporting Document(s) NEGATIVE NEGATIVE HEPATITIS B SURFACE ANTIG EN eCW1 ([facility]) ID Date Data Source HEPATITIS B SURFACE ANTIBODY 04/22/2021 12:00:00 AM EDT eCW1 ([facility]) Name Value Range Interpretation Code Description Data Joanie rce(s) Supporting Document(s) POSITIVE POSITIVE HEPATITIS B SURFACE ANTIB ANGELIQUE eCW1 ([facility]) ID Date Data Source Comprehensive Metabolic Profile (CMP) 04/22/2021 12:00:00 AM EDT eCW1 ([facility]) Name Value Range Interpretation Code Description Data Joanie rce(s) Supporting Document(s) 82 70-100 GLUCOSE, FASTING eCW1 ([facility]) 0.73 0.55-1.30 CREATININE FOR GFR eCW1 ([facility]) > 60.0 >60 GLOMERULAR FILTRATION RATE eCW 1 ([facility]) 139 136-145 SODIUM LEVEL eCW1 ([facility]) 7 7-18 BLOOD UREA NITROGEN eCW1 ([facility]) 8.8 8.5-10.1 CALCIUM LEVEL eCW1 ([facility]) 4.2 3.5-5.1 POTASSIUM SERUM eCW1 ([facility]) 26 21-32 CARBON DIOXIDE LEVEL eCW1 ([facility]) 107 98-107 CHLORIDE LEVEL eCW1 ([facility]) 0.3 0.2-1.0 BILIRUBIN,TOTAL eCW1 ([facility]) 31 12-78 ALT/SGPT eCW1 ([facility]) 86 45-117 ALKALINE PHOSPHATASE eCW1 ([facility]) 36 7-37 AST/SGOT eCW1 ([facility]) 0.9 1.2-2.2 ALBUMIN/GLOBULIN RATIO eCW1 ([facility]) 3.5 3.2-5.2 ALBUMIN eCW1 ([facility]) 7.3 6.4-8.2 TOTAL PROTEIN eCW1 ([facility]) ID Date Data Source CBC - Complete Blood Count 04/22/2021 12:00:00 AM EDT eCW1 ( [facility]) Name Value Range Interpretation Code Description Data Joanie rce(s) Supporting Document(s) 12.2 4.0-10.0 eCW1 ([facility]) 4.08 4.00-5.40 eCW1 ([facility]) 12.2 12.0-15.5 eCW1 ([facility]) 38.0 36.0-47.0 eCW1 ([facility]) 93.1 80.0-96.0 eCW1 ([facility]) 14.3 11.5-14.5 eCW1 ([facility]) 29.9 27.0-33.0 eCW1 ([facility]) 346 150-450 eCW1 ([facility]) 32.1 32.0-36.5 eCW1 ([facility]) ID Date Data Source DRUG EVAL TOXICOLOGY REHAB 01/21/2021 12:00:00 AM EST eCW1 ( [facility]) Name Value Range Interpretation Code Description Data Joanie rce(s) Supporting Document(s) NEGATIVE NEGATIVE eCW1 ([facility]) NEGATIVE NEGATIVE eCW1 ([facility]) NEGATIVE NEGATIVE eCW1 ([facility]) NEGATIVE NEGATIVE eCW1 ([facility]) PENDING CONFIRMATION NEGATIVE eCW1 ([facility]) NEGATIVE NEGATIVE eCW1 ([facility]) NEGATIVE NEGATIVE eCW1 ([facility]) ID Date Data Source UA URINALYSIS 01/21/2021 12:00:00 AM EST eCW1 ([facility]) Name Value Range Interpretation Code Description Data Joanie rce(s) Supporting Document(s) eCW1 ([facility]) ID Date Data Source URINE CULTURE 01/21/2021 12:00:00 AM EST eCW1 ([facility]) Name Value Range Interpretation Code Description Data Joanie rce(s) Supporting Document(s) eCW1 ([facility]) ID Date Data Source Basic Metabolic Profile (BMP) 01/21/2021 12:00:00 AM EST eCW 1 ([facility]) Name Value Range Interpretation Code Description Data Joanie rce(s) Supporting Document(s) 96 70-100 GLUCOSE, FASTING eCW1 ([facility]) 10 7-18 BLOOD UREA NITROGEN eCW1 ([facility]) 0.94 0.55-1.30 CREATININE FOR GFR eCW1 ([facility]) 4.4 3.5-5.1 POTASSIUM SERUM eCW1 ([facility]) 139 136-145 SODIUM LEVEL eCW1 ([facility]) > 60.0 >60 GLOMERULAR FILTRATION RATE eCW 1 ([facility]) 102 98-107 CHLORIDE LEVEL eCW1 ([facility]) 8.7 8.5-10.1 CALCIUM LEVEL eCW1 ([facility]) 31 21-32 CARBON DIOXIDE LEVEL eCW1 ([facility]) ID Date Data Source CHLAMYDIA & GC DNA AMPLIFICAT 01/21/2021 12:00:00 AM EST eCW 1 ([facility]) Name Value Range Interpretation Code Description Data Joanie rce(s) Supporting Document(s) Chlamydia trachomatis rRNA [Presence] in Unspecified specimen by Probe and target amplification method NEGATIVE NEGATIVE CHLAMYDIA DNA AMPLIFICATION eCW1 ([facility]) ID Date Data Source CBC with Differential 01/21/2021 12:00:00 AM EST eCW1 ([facility]) Name Value Range Interpretation Code Description Data Joanie rce(s) Supporting Document(s) 32.5 24.0-44.0 LYMPH % eCW1 ([facility]) 5.9 0.0-5.0 MONO % eCW1 ([facility]) 58.4 36.0-66.0 NEUTROPHILS % eCW1 ([facility]) 6.9 1.5-8.5 NEUTROPHILS # eCW1 ([facility]) 2.1 0.0-3.0 EOS % eCW1 ([facility]) 0.8 0.0-1.0 BASO % eCW1 ([facility]) 3.8 1.5-5.0 LYMPH # eCW1 ([facility]) 0.7 0.0-0.8 MONO # eCW1 ([facility]) 0.3 0.0-0.5 EOS # eCW1 ([facility]) 0.1 0.0-0.2 BASO # eCW1 ([facility]) 11.9 4.0-10.0 WHITE BLOOD COUNT eCW1 ([facility]) 4.20 4.00-5.40 RED BLOOD COUNT eCW1 ([facility]) 12.3 12.0-15.5 HEMOGLOBIN eCW1 ([facility]) 95.5 80.0-96.0 MEAN CORPUSCULAR VOLUME e CW1 ([facility]) 40.1 36.0-47.0 HEMATOCRIT eCW1 ([facility]) 29.3 27.0-33.0 MEAN CORPUSCULAR HEMOGLOB IN eCW1 ([facility]) 335 150-450 PLATELET COUNT, AUTOMATED eCW1 ([facility]) 14.1 11.5-14.5 RED CELL DISTRIBUTION WID TH eCW1 ([facility]) 30.7 32.0-36.5 MEAN CORPUSCULAR HGB CONC eCW1 ([facility]) Procedure Social History Code Duration Value Status Description Data Source(s ) Smoking 04/22/2021 12:00:00 AM EDT Current Smoker completed Curre nt Smoker eCW1 ([facility]) Smoking 04/22/2021 12:00:00 AM EDT Current Smoker completed Curre nt Smoker eCW1 ([facility]) Smoking 04/22/2021 12:00:00 AM EDT Current Smoker completed Curre nt Smoker eCW1 ([facility]) Smoking 04/22/2021 12:00:00 AM EDT Current Smoker completed Curre nt Smoker eCW1 ([facility]) Smoking 04/22/2021 12:00:00 AM EDT Current Smoker completed Curre nt Smoker eCW1 ([facility]) Smoking 04/22/2021 12:00:00 AM EDT Current Smoker completed Curre nt Smoker eCW1 ([facility]) Smoking 04/22/2021 12:00:00 AM EDT Current Smoker completed Curre nt Smoker eCW1 ([facility]) Smoking 01/21/2021 12:00:00 AM EST Current Smoker completed Curre nt Smoker eCW1 ([facility]) Smoking 10/22/2020 12:00:00 AM EST Current Smoker completed Curre nt Smoker eCW1 ([facility]) Smoking 10/22/2020 12:00:00 AM EST Current Smoker completed Curre nt Smoker eCW1 ([facility]) Vital Signs ID Date Data Source UNK Name Value Range Interpretation Code Description Data Source(s) Body weight 182 [lb_av] 182 [lb_av] eCW1 ([facility]) Body mass index (BMI) [Ratio] 36.76 kg/m2 36.76 kg/m2 eCW1 ([facility]) Heart rate 86 /min 86 /min eCW1 ([facility]) Respiratory rate 18 /min 18 /min eCW1 ([facility]) Body temperature 98.9 [degF] 98.9 [degF] eCW1 ( [facility]) Systolic blood pressure 122 mm[Hg] 122 mm[Hg] e CW1 ([facility]) Diastolic blood pressure 64 mm[Hg] 64 mm[Hg] eCW1 ([facility]) Body height 59 [in_i] 59 [in_i] eCW1 ([facility]) Body height 59 [in_i] 59 [in_i] MEDENT ([facility]) 4'11" Body weight 185.25 [lb_av] 185.25 [lb_av] MEDEN T ([facility] Body mass index (BMI) [Ratio] 37.4 kg/m2 37.4 k g/m2 MEDENT ([facility]) Body weight 184 [lb_av] 184 [lb_av] eCW1 ([facility]) Body height 59 [in_i] 59 [in_i] eCW1 ([facility]) Body mass index (BMI) [Ratio] 37.16 kg/m2 37.16 kg/m2 eCW1 ([facility]) Heart rate 98 /min 98 /min eCW1 ([facility]) Respiratory rate 18 /min 18 /min eCW1 ([facility]) Body temperature 98.1 [degF] 98.1 [degF] eCW1 ( [facility]) Systolic blood pressure 108 mm[Hg] 108 mm[Hg] e CW1 ([facility]) Diastolic blood pressure 62 mm[Hg] 62 mm[Hg] eCW1 ([facility]) Body weight 172 [lb_av] 172 [lb_av] eCW1 ([facility]) Body height 59 [in_i] 59 [in_i] eCW1 ([facility]) Body mass index (BMI) [Ratio] 34.74 kg/m2 34.74 kg/m2 eCW1 ([facility]) Heart rate 98 /min 98 /min eCW1 ([facility]) Respiratory rate 18 /min 18 /min eCW1 ([facility]) Body temperature 97.7 [degF] 97.7 [degF] eCW1 ( [facility]) Systolic blood pressure 118 mm[Hg] 118 mm[Hg] e CW1 ([facility]) Diastolic blood pressure 72 mm[Hg] 72 mm[Hg] eCW1 ([facility]) Patient Treatment Plan of Care Planned Activity Planned Date Details Description Data Source (s) doxycycline hyclate 100 MG Oral Tablet 04/26/2021 12:00:00 AM EDT eCW1 ([facility]) doxycycline hyclate 100 MG Oral Tablet 04/26/2021 12:00:00 AM EDT eCW1 ([facility]) doxycycline hyclate 100 MG Oral Tablet 04/26/2021 12:00:00 AM EDT eCW1 ([facility]) doxycycline hyclate 100 MG Oral Tablet 04/26/2021 12:00:00 AM EDT eCW1 ([facility]) doxycycline hyclate 100 MG Oral Tablet 04/26/2021 12:00:00 AM EDT eCW1 ([facility]) Naproxen 375 MG Oral Tablet 01/21/2021 12:00:00 AM EST eCW1 ([facility]) emtricitabine 200 MG / Tenofovir disopro xil fumarate 300 MG Oral Tablet [Truvada] 10/22/2020 12:00:00 AM EST eCW1 ([facility]) emtricitabine 200 MG / Tenofovir disopro xil fumarate 300 MG Oral Tablet [Truvada] 10/22/2020 12:00:00 AM EST eCW1 ([facility])
--- OUTSIDE RECORDS SUMMARY | 2021-11-01 10:51 | CCD ---
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 Role Phone Brianna Banuelos Unavailable PROBLEMS Type Condition ICD9-CM Code [id number] Code Onset Dates Condition S tatus W/U Status Risk SNOMED Code Notes Problem HIV exposure Z20.6 Active confirmed 5042515 02 Problem Moderate asthma without complication, unspecifie d whether persistent J45.909 Active confirmed 608119267 Problem Drug abuse F19.10 Active confirmed 58609917 Problem Night sweats R61 Active confirmed 1882306 0 Problem Depressive disorder F32.9 Active confirmed 26303169 Problem Irregular periods N92.6 Active confirmed 80 349903 Problem Weight loss R63.4 Active confirmed 00482572 ALLERGIES No Known Allergies ENCOUNTERS from 1987 to 2021-10-31 Encounter Location Date Provider Diagnosis [address] [phone] [place] [address] Oct, Brianna Banuelos IMMUNIZATIONS Vaccine Route Administration Date [...] School Language: Question Answer Notes Languages spoken: Marshallese Roman Catholic: Question Answer Notes Roman Catholic 08 Jainism Sexual Hx: Question Answer Notes Had sex [...] Information RESULTS No Results REASON FOR VISIT no dennise warning MEDICAL (GENERAL) HISTORY Type Description Date Medical History Depression FU at [facility] clinic Luis Hernandez but ot [...] Insured Coverage Start Date Coverage End Date [facility] [address] [facility] [phone] [employer] self
[2021-11-01] MEDS ORDERED: WELLTAB38 PO (10:54)
[2021-11-01] MEDS ORDERED: PARO20TA4 PO (10:54)
[2021-11-01] MEDS ORDERED: TIZA4CAP PO (10:54)
--- OUTSIDE RECORDS SUMMARY | 2021-11-01 11:41 | CCD ---
Author Author [facility] Organization [facility] Address Unknown Phone Unavailable Care Team Providers Care Flat Drier Name Role Phone DRAZEK, I SETH PA [...] is protected by Article 27-F of the [facility] Public Health law. If you continue you may have access to information: Regarding HIV / AIDS; Provided by facilities licensed or operated by the [facility] Office of Mental Health; or Provided by the [facility] Office for People With Developmental Disabilities. If such information is present, then the following [facility] mandated warning applies: This information has [...] law may result in a fine or assisted sentence or both. A general authorization for the release of medical or other information is NOT sufficient authorization for further disc losure. Family History Family Member Name Family Member Gender Family Member Status Date o f Status Description Data Source(s) Unknown Male Problem MEDENT ([facility] Encounters Encounter Providers Location Date Indications Data Source(s ) Unknown [address], [facility] [address] 10/30/2021 12:00:00 AM EST [facility]CW1 [facility] [place] [address] [address] 08/09/2021 12:00:00 AM EDT [facility]CW1 [facility]) [place] [address] [address] 07/22/2021 12:00:00 AM EDT [facility]CW1 [facility]) [place] [address] [address] 06/11/2021 12:00:00 AM EDT eCW1 ([facility]) [place] [address] [address] 04/26/2021 12:00:00 AM EDT eCW1 ([facility]) [place] [address] [address] 04/23/2021 12:00:00 AM EDT eCW1 ([facility]) [place] [address] [address] 04/22/2021 12:00:00 AM EDT eCW1 ([facility]) Office Visit Attender: SETH OGDEN Physical Therapy 2020 06:00:00 PM EST MEDENT ([facility]) [place] [address] [address] 01/21/2021 12:00:00 AM EST eCW1 ([facility]) [place] [address] [address] 10/26/2020 12:00:00 AM EST eCW1 ([facility]) Outpatient [address] [facility] [place] [address] 10/22/2020 12:00:00 AM EST eCW1 ([facility]) [place] [address] [address] 10/01/2020 12:00:00 AM EST eCW1 ([facility]) Immunizations Vaccine Date Status Description Data Source(s) COVID-19 VACCINE Moderna 06/24/2021 12:00:00 AM EDT completed NYSIIS Vaccine Series Complete: NOThis Data was Submitted to [facility] Hep A, adult 10/22/2020 01:58:00 PM EST completed e CW1 ([facility]) influenza, recombinant, quadrIvalent,injectable, prese rvative free 10/22/2020 01:58:00 PM EST completed eCW1 ([facility]) Hep A, adult 10/22/2020 01:58:00 PM EST completed e CW1 ([facility]) influenza, recombinant, quadrIvalent,injectable, prese rvative free 10/22/2020 01:58:00 PM EST completed eCW1 ([facility]) Hep A, adult 10/22/2020 01:58:00 PM EST completed e CW1 ([facility]) influenza, recombinant, quadrIvalent,injectable, prese rvative free 10/22/2020 01:58:00 PM EST completed eCW1 ([facility]) Hep A, adult 10/22/2020 01:58:00 PM EST completed e CW1 ([facility]) influenza, recombinant, quadrIvalent,injectable, prese rvative free 10/22/2020 01:58:00 PM EST completed eCW1 ([facility]) Hep A, adult 10/22/2020 01:58:00 PM EST completed e CW1 ([facility]) influenza, recombinant, quadrIvalent,injectable, prese rvative free 10/22/2020 01:58:00 PM EST completed eCW1 ([facility]) Hep A, adult 10/22/2020 01:58:00 PM EST completed e CW1 ([facility]) influenza, recombinant, quadrIvalent,injectable, prese rvative free 10/22/2020 01:58:00 PM EST completed eCW1 ([facility]) Hep A, adult 10/22/2020 01:58:00 PM EST completed e CW1 ([facility]) influenza, recombinant, quadrIvalent,injectable, prese rvative free 10/22/2020 01:58:00 PM EST completed eCW1 ([facility]) Hep A, adult 10/22/2020 01:58:00 PM EST completed e CW1 ([facility]) influenza, recombinant, quadrIvalent,injectable, prese rvative free 10/22/2020 01:58:00 PM EST completed eCW1 ([facility]) Hep A, adult 10/22/2020 01:58:00 PM EST completed e CW1 ([facility]) influenza, recombinant, quadrIvalent,injectable, prese rvative free 10/22/2020 01:58:00 PM EST completed eCW1 ([facility]) Hep A, adult 10/22/2020 01:58:00 PM EST completed e CW1 ([facility]) influenza, recombinant, quadrIvalent,injectable, prese rvative free 10/22/2020 01:58:00 PM EST completed eCW1 ([facility]) Medications Medication Brand Name Start Date Product Form Dose Route Admi nistrative Instructions Pharmacy Instructions Status Indications Reaction Description Data Source(s) doxycycline hyclate 100 MG Oral Tablet Doxycycline Hyc late 100 MG Doxycycline Hyclate 100 MG 04/26/2021 12:00:00 AM EDT 1.0 {tablet} active Doxycycline Hyclate 100 MG eCW1 ([facility]) doxycycline hyclate 100 MG Oral Tablet Doxycycline Hyc late 100 MG Doxycycline Hyclate 100 MG 04/26/2021 12:00:00 AM EDT 1.0 {tablet} active Doxycycline Hyclate 100 MG eCW1 ([facility]) doxycycline hyclate 100 MG Oral Tablet Doxycycline Hyc late 100 MG Doxycycline Hyclate 100 MG 04/26/2021 12:00:00 AM EDT 1.0 {tablet} active Doxycycline Hyclate 100 MG eCW1 ([facility]) doxycycline hyclate 100 MG Oral Tablet Doxycycline Hyc late 100 MG Doxycycline Hyclate 100 MG 04/26/2021 12:00:00 AM EDT 1.0 {tablet} active Doxycycline Hyclate 100 MG eCW1 ([facility]) doxycycline hyclate 100 MG Oral Tablet Doxycycline Hyc late 100 MG Doxycycline Hyclate 100 MG 04/26/2021 12:00:00 AM EDT 1.0 {tablet} active Doxycycline Hyclate 100 MG eCW1 ([facility]) Cyclobenzaprine hydrochloride 5 MG Oral Tablet Cyclobenzapri ne HCL 01/22/2021 12:00:00 AM EST ORAL active M EDENT ([facility]) Naproxen 375 MG Oral Tablet Naproxen 375 MG 01/21/2021 12:00:00 AM EST active Naproxen 375 MG eCW1 ([facility]) emtricitabine 200 MG / Tenofovir disopro xil fumarate 300 MG Oral Tablet [Truvada] Truvada 200-300 MG Truvada 200-300 MG 10/22/2020 12:00:00 AM EST 1.0 {tablet} active Truvada 200-300 MG eCW 1 ([facility]) emtricitabine 200 MG / Tenofovir disopro xil fumarate 300 MG Oral Tablet [Truvada] Truvada 200-300 MG Truvada 200-300 MG 10/22/2020 12:00:00 AM EST 1.0 {tablet} active Truvada 200-300 MG eCW 1 ([facility]) Insurance Providers Payer name Policy type / Coverage type Policy ID Covered democrat ID Covered democrat's relationship to nation Policy Nation Plan Information [facility] Hmo Commercial [id number] Self 1 [id number] [facility] DEPT [id number] SP [id number] [facility] [id number] SP [id number] [facility] Commercial [id number] Self 1 [id number] [facility] Commercial [id number] Self 1 [id number] [facility] COMM[facility]ITY [facility] [id number] SP [id number] [facility] Commercial [id number] Self 1 [id number] Managed Care [facility] [id number] S [id number] [facility] DEPT [id number] SP [id number] UN COMMUNITY PLAN [facility] [id number] SP [id number] [facility] COMMUN[facility] [id number] SP [id number] [facility] [id number] SP [id number] Self Pay S UNAVAILABLE S UNAVAILA BLE D [facility] P [id number] S [id number] UN COMMUNITY PLAN MCDHMO [id number] SP [id number] UNHC COMMUNITY PLAN MCDHMO [id number] SP [id number] Medicaid Medicaid [id number] Self MEDICAID [id number] SP [id number] Medicaid Dental O [id number] S [id number] BLUE CROSS LIVE PLAN [id number] SP [id number] BLUE CROSS LIVE PLAN [id number] SP [id number] [facility] COMMUNITY PLAN MCDHMO [id number] SP [id number] [facility] COMMUN[facility] [id number] SP [id number] GE[employer] NO FAULT [id number] SP [id number] [employer] NO FAULT [id number] SP 1 [id number] [facility] COMMUN[facility] [id number] SP [id number] [facility] O [id number] S [id number] [facility] COMMUNITY PL[facility] [id number] SP [id number] Managed Care [facility] P [id number] S [id number] Medicaid S UNAVAILABLE S UNAVAILA BLE [facility] O [id number] S [id number] [facility] Community Plan Commercial [id number] Self 1 [id number] UN COMMUNITY PLAN [facility] [id number] SP [id number] Problems, Conditions, and Diagnoses No Information Surgeries/Procedures Procedure Description Date Indications Data Source(s) MRI Lower Extremity Other Than Joint 02/07/2021 12:00: 00 AM EST MEDENT ([facility] ) RADEX FOOT COMPLETE MINIMUM 3 VIEWS 01/22/2021 12:00:0 0 AM EST MEDENT ([facility] ) Immunization: Flublok Quadrivalent (18 years & older) 0.5mL IM (Influenza) 10/22/2020 12:00:00 AM EST eCW1 ([facility]) HEPATITIS A VACCINE ADULT FOR INTRAMUSCULAR USE 2019 12:00:00 AM EST eCW1 ([facility]) Results ID Date Data Source SYPHILIS ANTIBODY (RPR SCREEN) 04/22/2021 12:00:00 AM EDT eC W1 ([facility]) Name Value Range Interpretation Code Description Data Joanie rce(s) Supporting Document(s) NONREACTIVE NONREACTIVE SYPHILIS eCW1 ([facility]) ID Date Data Source [id number] 04/22/2021 12:00:00 AM EDT eCW1 ([facility]) Name Value Range Interpretation Code Description Data Joanie rce(s) Supporting Document(s) eCW1 ([facility]) ID Date Data Source HEPATITIS C ANTIBODY INDEX 04/22/2021 12:00:00 AM EDT eCW1 ( [facility]) Name Value Range Interpretation Code Description Data Joanie rce(s) Supporting Document(s) 0.1 <0.8 HEPATITIS C VIRUS RAFFY INDEX eC W1 ([facility]) ID Date Data Source HEPATITIS B SURFACE ANTIGEN 04/22/2021 12:00:00 AM EDT eCW1 ([facility]) Name Value Range Interpretation Code Description Data Joanie rce(s) Supporting Document(s) NEGATIVE NEGATIVE HEPATITIS B SURFACE ANTIG EN eCW1 ([facility]) ID Date Data Source HEPATITIS B SURFACE ANTIBODY 04/22/2021 12:00:00 AM EDT eCW1 ([facility]) Name Value Range Interpretation Code Description Data Joanie rce(s) Supporting Document(s) POSITIVE POSITIVE HEPATITIS B SURFACE ANTIB ANGELIQUE eCW1 ([facility]) ID Date Data Source Comprehensive Metabolic Profile (CMP) 04/22/2021 12:00:00 AM EDT eCW1 ([facility]) Name Value Range Interpretation Code Description Data Joanie rce(s) Supporting Document(s) 82 70-100 GLUCOSE, FASTING eCW1 ([facility]) 0.73 0.55-1.30 CREATININE FOR GFR eCW1 ([facility]) > 60.0 >60 GLOMERULAR FILTRATION RATE eCW 1 ([facility]) 139 136-145 SODIUM LEVEL eCW1 ([facility]) 7 7-18 BLOOD UREA NITROGEN eCW1 ([facility]) 8.8 8.5-10.1 CALCIUM LEVEL eCW1 ([facility]) 4.2 3.5-5.1 POTASSIUM SERUM eCW1 ([facility]) 26 21-32 CARBON DIOXIDE LEVEL eCW1 ([facility]) 107 98-107 CHLORIDE LEVEL eCW1 ([facility]) 0.3 0.2-1.0 BILIRUBIN,TOTAL eCW1 ([facility]) 31 12-78 ALT/SGPT eCW1 ([facility]) 86 45-117 ALKALINE PHOSPHATASE eCW1 ([facility]) 36 7-37 AST/SGOT eCW1 ([facility]) 0.9 1.2-2.2 ALBUMIN/GLOBULIN RATIO eCW1 ([facility]) 3.5 3.2-5.2 ALBUMIN eCW1 ([facility]) 7.3 6.4-8.2 TOTAL PROTEIN eCW1 ([facility]) ID Date Data Source CBC - Complete Blood Count 04/22/2021 12:00:00 AM EDT eCW1 ( [facility]) Name Value Range Interpretation Code Description Data Joanie rce(s) Supporting Document(s) 12.2 4.0-10.0 eCW1 ([facility]) 4.08 4.00-5.40 eCW1 ([facility]) 12.2 12.0-15.5 eCW1 ([facility]) 38.0 36.0-47.0 eCW1 ([facility]) 93.1 80.0-96.0 eCW1 ([facility]) 14.3 11.5-14.5 eCW1 ([facility]) 29.9 27.0-33.0 eCW1 ([facility]) 346 150-450 eCW1 ([facility]) 32.1 32.0-36.5 eCW1 ([facility]) ID Date Data Source DRUG EVAL TOXICOLOGY REHAB 01/21/2021 12:00:00 AM EST eCW1 ( [facility]) Name Value Range Interpretation Code Description Data Joanie rce(s) Supporting Document(s) NEGATIVE NEGATIVE eCW1 ([facility]) NEGATIVE NEGATIVE eCW1 ([facility]) NEGATIVE NEGATIVE eCW1 ([facility]) NEGATIVE NEGATIVE eCW1 ([facility]) PENDING CONFIRMATION NEGATIVE eCW1 ([facility]) NEGATIVE NEGATIVE eCW1 ([facility]) NEGATIVE NEGATIVE eCW1 ([facility]) ID Date Data Source UA URINALYSIS 01/21/2021 12:00:00 AM EST eCW1 ([facility]) Name Value Range Interpretation Code Description Data Joanie rce(s) Supporting Document(s) eCW1 ([facility]) ID Date Data Source URINE CULTURE 01/21/2021 12:00:00 AM EST eCW1 ([facility]) Name Value Range Interpretation Code Description Data Joanie rce(s) Supporting Document(s) eCW1 ([facility]) ID Date Data Source Basic Metabolic Profile (BMP) 01/21/2021 12:00:00 AM EST eCW 1 ([facility]) Name Value Range Interpretation Code Description Data Joanie rce(s) Supporting Document(s) 96 70-100 GLUCOSE, FASTING eCW1 ([facility]) 10 7-18 BLOOD UREA NITROGEN eCW1 ([facility]) 0.94 0.55-1.30 CREATININE FOR GFR eCW1 ([facility]) 4.4 3.5-5.1 POTASSIUM SERUM eCW1 ([facility]) 139 136-145 SODIUM LEVEL eCW1 ([facility]) > 60.0 >60 GLOMERULAR FILTRATION RATE eCW 1 ([facility]) 102 98-107 CHLORIDE LEVEL eCW1 ([facility]) 8.7 8.5-10.1 CALCIUM LEVEL eCW1 ([facility]) 31 21-32 CARBON DIOXIDE LEVEL eCW1 ([facility]) ID Date Data Source CHLAMYDIA & GC DNA AMPLIFICAT 01/21/2021 12:00:00 AM EST eCW 1 ([facility]) Name Value Range Interpretation Code Description Data Joanie rce(s) Supporting Document(s) Chlamydia trachomatis rRNA [Presence] in Unspecified specimen by Probe and target amplification method NEGATIVE NEGATIVE CHLAMYDIA DNA AMPLIFICATION eCW1 ([facility]) ID Date Data Source CBC with Differential 01/21/2021 12:00:00 AM EST eCW1 ([facility]) Name Value Range Interpretation Code Description Data Joanie rce(s) Supporting Document(s) 32.5 24.0-44.0 LYMPH % eCW1 ([facility]) 5.9 0.0-5.0 MONO % eCW1 ([facility]) 58.4 36.0-66.0 NEUTROPHILS % eCW1 ([facility]) 6.9 1.5-8.5 NEUTROPHILS # eCW1 ([facility]) 2.1 0.0-3.0 EOS % eCW1 ([facility]) 0.8 0.0-1.0 BASO % eCW1 ([facility]) 3.8 1.5-5.0 LYMPH # eCW1 ([facility]) 0.7 0.0-0.8 MONO # eCW1 ([facility]) 0.3 0.0-0.5 EOS # eCW1 ([facility]) 0.1 0.0-0.2 BASO # eCW1 ([facility]) 11.9 4.0-10.0 WHITE BLOOD COUNT eCW1 ([facility]) 4.20 4.00-5.40 RED BLOOD COUNT eCW1 ([facility]) 12.3 12.0-15.5 HEMOGLOBIN eCW1 ([facility]) 95.5 80.0-96.0 MEAN CORPUSCULAR VOLUME e CW1 ([facility]) 40.1 36.0-47.0 HEMATOCRIT eCW1 ([facility]) 29.3 27.0-33.0 MEAN CORPUSCULAR HEMOGLOB IN eCW1 ([facility]) 335 150-450 PLATELET COUNT, AUTOMATED eCW1 ([facility]) 14.1 11.5-14.5 RED CELL DISTRIBUTION WID TH eCW1 ([facility]) 30.7 32.0-36.5 MEAN CORPUSCULAR HGB CONC eCW1 ([facility]) Procedure Social History Code Duration Value Status Description Data Source(s ) Smoking 04/22/2021 12:00:00 AM EDT Current Smoker completed Curre nt Smoker eCW1 ([facility]) Smoking 04/22/2021 12:00:00 AM EDT Current Smoker completed Curre nt Smoker eCW1 ([facility]) Smoking 04/22/2021 12:00:00 AM EDT Current Smoker completed Curre nt Smoker eCW1 ([facility]) Smoking 04/22/2021 12:00:00 AM EDT Current Smoker completed Curre nt Smoker eCW1 ([facility]) Smoking 04/22/2021 12:00:00 AM EDT Current Smoker completed Curre nt Smoker eCW1 ([facility]) Smoking 04/22/2021 12:00:00 AM EDT Current Smoker completed Curre nt Smoker eCW1 ([facility]) Smoking 04/22/2021 12:00:00 AM EDT Current Smoker completed Curre nt Smoker eCW1 ([facility]) Smoking 01/21/2021 12:00:00 AM EST Current Smoker completed Curre nt Smoker eCW1 ([facility]) Smoking 10/22/2020 12:00:00 AM EST Current Smoker completed Curre nt Smoker eCW1 ([facility]) Smoking 10/22/2020 12:00:00 AM EST Current Smoker completed Curre nt Smoker eCW1 ([facility]) Vital Signs ID Date Data Source UNK Name Value Range Interpretation Code Description Data Source(s) Body weight 182 [lb_av] 182 [lb_av] eCW1 ([facility]) Body height 59 [in_i] 59 [in_i] eCW1 ([facility]) Body mass index (BMI) [Ratio] 36.76 kg/m2 36.76 kg/m2 eCW1 ([facility]) Heart rate 86 /min 86 /min eCW1 ([facility]) Respiratory rate 18 /min 18 /min eCW1 ([facility]) Body temperature 98.9 [degF] 98.9 [degF] eCW1 ( [facility]) Systolic blood pressure 122 mm[Hg] 122 mm[Hg] e CW1 ([facility]) Diastolic blood pressure 64 mm[Hg] 64 mm[Hg] eCW1 ([facility]) Body height 59 [in_i] 59 [in_i] MEDENT ([facility]) 4'11" Body weight 185.25 [lb_av] 185.25 [lb_av] MEDEN T ([facility]) Body mass index (BMI) [Ratio] 37.4 kg/m2 37.4 k g/m2 MEDENT ([facility]) Body weight 184 [lb_av] 184 [lb_av] eCW1 ([facility]) Body height 59 [in_i] 59 [in_i] eCW1 ([facility]) Body mass index (BMI) [Ratio] 37.16 kg/m2 37.16 kg/m2 eCW1 ([facility]) Heart rate 98 /min 98 /min eCW1 ([facility]) Respiratory rate 18 /min 18 /min eCW1 ([facility]) Body temperature 98.1 [degF] 98.1 [degF] eCW1 ( [facility]) Systolic blood pressure 108 mm[Hg] 108 mm[Hg] e CW1 ([facility]) Diastolic blood pressure 62 mm[Hg] 62 mm[Hg] eCW1 ([facility]) Body weight 172 [lb_av] 172 [lb_av] eCW1 ([facility]) Body height 59 [in_i] 59 [in_i] eCW1 ([facility]) Body mass index (BMI) [Ratio] 34.74 kg/m2 34.74 kg/m2 eCW1 ([facility]) Heart rate 98 /min 98 /min eCW1 ([facility]) Respiratory rate 18 /min 18 /min eCW1 ([facility]) Body temperature 97.7 [degF] 97.7 [degF] eCW1 ( [facility]) Systolic blood pressure 118 mm[Hg] 118 mm[Hg] e CW1 ([facility]) Diastolic blood pressure 72 mm[Hg] 72 mm[Hg] eCW1 ([facility]) Patient Treatment Plan of Care Planned Activity Planned Date Details Description Data Source (s) doxycycline hyclate 100 MG Oral Tablet 04/26/2021 12:00:00 AM EDT eCW1 ([facility]) doxycycline hyclate 100 MG Oral Tablet 04/26/2021 12:00:00 AM EDT eCW1 ([facility]) doxycycline hyclate 100 MG Oral Tablet 04/26/2021 12:00:00 AM EDT eCW1 ([facility]) doxycycline hyclate 100 MG Oral Tablet 04/26/2021 12:00:00 AM EDT eCW1 ([facility]) doxycycline hyclate 100 MG Oral Tablet 04/26/2021 12:00:00 AM EDT eCW1 ([facility]) Naproxen 375 MG Oral Tablet 01/21/2021 12:00:00 AM EST eCW1 ([facility]) emtricitabine 200 MG / Tenofovir disopro xil fumarate 300 MG Oral Tablet [Truvada] 10/22/2020 12:00:00 AM EST eCW1 ([facility]) emtricitabine 200 MG / Tenofovir disopro xil fumarate 300 MG Oral Tablet [Truvada] 10/22/2020 12:00:00 AM EST eCW1 ([facility])
[2021-11-01] MEDS ORDERED: PERCOCET 5MG/325MG TAB PO ONE (11:50)
--- NOTE | 2021-11-01 12:47 | REP ---
INDICATION: cut tip of left thumb off ?bone inv. COMPARISON: None. TECHNIQUE: Four views left hand 1st digit FINDINGS: No acute fracture or destructive osseous lesion. There is loss of soft tissues of the tip of the thumb consistent with history of previous laceration. IMPRESSION: No acute osseous abnormality. <Electronically signed by Geovani Hand > 11/01/21 1719
[2021-11-01] MEDS ORDERED: HYDR-4571 PO (13:29)
[2021-11-01] MEDS ORDERED: CEPH500C PO (13:29)
[2021-11-01 13:44] VITALS: BP 148/88
== END 2021-11-01 13:45 | disposition home or self-care (01) ==
LOC: M ED 10:40
DX: S61.112A Laceration without foreign body of left thumb with damage to nail, initial encounter (principal); W26.0XXA Contact with knife, initial encounter; Y92.59 Other trade areas as the place of occurrence of the external cause; Y93.89 Activity, other specified; Y99.0 Civilian activity done for income or pay; J45.909 Unspecified asthma, uncomplicated; I44.0 Atrioventricular block, first degree; R45.4 Irritability and anger; Z79.899 Other long term (current) drug therapy; Z79.51 Long term (current) use of inhaled steroids; Z87.891 Personal history of nicotine dependence

== ENCOUNTER 2022-12-01 08:25 | Emergency (ER) | payer OTHER ==
[~2022-12-01] VITALS: Ht 149.9 cm; Wt 77.9 kg
[~2022-12-01 08:25] MED LIST changes: +CEPH500C PO; +DIPH-435; -DIPH25CA32; +HYDR-4571 PO; +PARO20TA4 PO; +TIZA10TA; +TIZA4CAP PO; -TIZA4TAB4
[2022-12-01 10:34] LABS: BASO # 0.1 10^3/uL (0.0-0.2); BASO % 0.6 % (0.0-1.0); EOS # 0.3 10^3/uL (0.0-0.5); EOS % 1.8 % (0.0-3.0); HEMATOCRIT 38.1 % (36.0-47.0); HEMOGLOBIN 12.4 g/dl (12.0-15.5); LYMPH # 3.6 10^3/uL (1.5-5.0); LYMPH % 25.8 % (24.0-44.0); MEAN CORPUSCULAR HEMOGLOBIN 29.6 pg (27.0-33.0); MEAN CORPUSCULAR HGB CONC 32.5 g/dl (32.0-36.5); MEAN CORPUSCULAR VOLUME 90.9 fl (80.0-96.0); MONO % 7.3 % (2.0-8.0); NEUTROPHILS % 64.1 % (36.0-66.0); PLATELET COUNT, AUTOMATED 392 10^3/uL (150-450); RED BLOOD COUNT 4.19 10^6/uL (4.00-5.40); WHITE BLOOD COUNT 14.1 10^3/uL (4.0-10.0)
[2022-12-01 10:48] LABS: CK-MB VALUE MASS < 1.0 NG/ML (<3.6)
[2022-12-01 10:51] LABS: BLOOD UREA NITROGEN 7 MG/DL (9-23); CALCIUM LEVEL 9.2 MG/DL (8.5-10.1); CARBON DIOXIDE LEVEL 24 MMOL/L (20-31); CHLORIDE LEVEL 101 MMOL/L (98-107); CPK CREATINE PHOSPHOKINASE 98 U/L (34-145); CREATININE FOR GFR 0.61 MG/DL (0.55-1.30); GLOMERULAR FILTRATION RATE > 60.0 (>60); GLUCOSE, FASTING 61 MG/DL (60-100); MB/CK RELATIVE INDEX 1.02 (< OR =4); POTASSIUM SERUM 3.4 MMOL/L (3.5-5.1); SODIUM LEVEL 138 MMOL/L (136-145); THYROID STIMULATING HORMONE 0.085 uIU/ML (0.55-4.78)
[2022-12-01 10:54] LABS: FREE T4 1.35 NG/DL (0.89-1.76)
[2022-12-01 11:02] LABS: HEPATITIS B SURFACE ANTIGEN NEGATIVE (NEGATIVE)
[2022-12-01 11:17] LABS: HIV 1&2 SCREEN CENTAUR NEGATIVE (NEGATIVE)
[2022-12-01 11:23] LABS: HEPATITIS C VIRUS ABY INDEX 0.1 INDEX (<0.8)
[2022-12-01 11:24] LABS: HEPATITIS B CORE ANTIBODY IGM NEGATIVE (NEGATIVE)
[2022-12-01 12:54] LABS: GC DNA AMPLIFICATION NEGATIVE (NEGATIVE)
[2022-12-01] MEDS ORDERED: METR-265 PO (13:26)
[2022-12-01] MEDS ORDERED: MULTTAB20 PO (13:28)
[2022-12-01 13:50] VITALS: BP 154/98
== END 2022-12-01 14:04 | disposition home or self-care (01) ==
LOC: M ED 08:25
DX: O98.311 Other infections with a predominantly sexual mode of transmission complicating pregnancy, first trimester (principal); A59.01 Trichomonal vulvovaginitis; O99.321 Drug use complicating pregnancy, first trimester; F12.10 Cannabis abuse, uncomplicated; F14.10 Cocaine abuse, uncomplicated; O99.331 Smoking (tobacco) complicating pregnancy, first trimester; F17.210 Nicotine dependence, cigarettes, uncomplicated; Z3A.09 9 weeks gestation of pregnancy; Z91.040 Latex allergy status

== ENCOUNTER → 2023-01-27 | Outpatient (CLI) | payer OTHER ==
[~2023-01-27] MED LIST changes: +METR-265 PO; +MULTTAB20 PO
[2023-01-27 16:02] LABS: HEMATOCRIT 36.2 % (36.0-47.0); HEMOGLOBIN 11.7 g/dl (12.0-15.5); MEAN CORPUSCULAR HEMOGLOBIN 30.5 pg (27.0-33.0); MEAN CORPUSCULAR HGB CONC 32.3 g/dl (32.0-36.5); MEAN CORPUSCULAR VOLUME 94.3 fl (80.0-96.0); PLATELET COUNT, AUTOMATED 323 10^3/uL (150-450); RED BLOOD COUNT 3.84 10^6/uL (4.00-5.40); WHITE BLOOD COUNT 13.3 10^3/uL (4.0-10.0)
[2023-01-27 16:59] LABS: HIV 1&2 SCREEN CENTAUR NEGATIVE (NEGATIVE)
[2023-01-27 17:05] LABS: GC DNA AMPLIFICATION NEGATIVE (NEGATIVE)
[2023-01-27 17:08] LABS: HEPATITIS C VIRUS ABY INDEX 0.1 INDEX (<0.8)
== END ==
LOC: M PLALAB 14:37
PROVIDERS: ATTEND Advanced Practice Midwife
DX: Z34.81 Encounter for supervision of other normal pregnancy, first trimester (principal)

== ENCOUNTER → 2023-01-27 | Outpatient (CLI) | payer OTHER | LOC: M PLALAB 14:34 | PROVIDERS: ATTEND Specialist | DX: Z34.82 Encounter for supervision of other normal pregnancy, second trimester (principal) ==

== ENCOUNTER → 2023-02-13 | Outpatient (CLI) | payer OTHER | LOC: M WHC 13:53 | PROVIDERS: ATTEND Specialist | DX: Z34.82 Encounter for supervision of other normal pregnancy, second trimester (principal) ==

== ENCOUNTER → 2023-03-13 | Outpatient (CLI) | payer OTHER | LOC: M WHC 15:46 | PROVIDERS: ATTEND Advanced Practice Midwife | DX: Z34.82 Encounter for supervision of other normal pregnancy, second trimester (principal) ==

== ENCOUNTER → 2023-04-21 | Outpatient (CLI) | payer OTHER ==
[2023-04-21 15:03] LABS: HEMATOCRIT 36.3 % (36.0-47.0); HEMOGLOBIN 11.5 g/dl (12.0-15.5); MEAN CORPUSCULAR HEMOGLOBIN 30.2 pg (27.0-33.0); MEAN CORPUSCULAR HGB CONC 31.7 g/dl (32.0-36.5); MEAN CORPUSCULAR VOLUME 95.3 fl (80.0-96.0); PLATELET COUNT, AUTOMATED 311 10^3/uL (150-450); RED BLOOD COUNT 3.81 10^6/uL (4.00-5.40); WHITE BLOOD COUNT 13.1 10^3/uL (4.0-10.0)
[2023-04-21 16:32] LABS: GC DNA AMPLIFICATION NEGATIVE (NEGATIVE)
== END ==
LOC: M PLALAB 09:39
PROVIDERS: ATTEND Obstetrics & Gynecology
DX: Z34.92 Encounter for supervision of normal pregnancy, unspecified, second trimester (principal)

== ENCOUNTER → 2023-04-30 | Outpatient (CLI) | payer OTHER | LOC: M WHC 10:22 | PROVIDERS: ATTEND Obstetrics & Gynecology | DX: Z36.2 Encounter for other antenatal screening follow-up (principal); Z3A.30 30 weeks gestation of pregnancy ==

== ENCOUNTER → 2023-05-13 | Outpatient (CLI) | payer OTHER ==
[2023-05-13 18:00] LABS: HEPATITIS B SURFACE ANTIGEN NEGATIVE (NEGATIVE)
[2023-05-13 18:12] LABS: HIV 1&2 SCREEN NEGATIVE (NEGATIVE)
[2023-05-13 18:21] LABS: HEPATITIS B CORE ANTIBODY IGM NEGATIVE (NEGATIVE); HEPATITIS C VIRUS ABY INDEX 0.1 INDEX (<0.8)
[2023-05-13 19:34] LABS: GC DNA AMPLIFICATION NEGATIVE (NEGATIVE)
== END ==
LOC: M PLALAB 14:45
PROVIDERS: ATTEND Advanced Practice Midwife
DX: Z34.83 Encounter for supervision of other normal pregnancy, third trimester (principal)

== ENCOUNTER → 2023-06-12 | Outpatient (REF) | payer OTHER | LOC: M SFHCWAGY 13:07 | PROVIDERS: ATTEND Obstetrics & Gynecology | DX: Z36.85 Encounter for antenatal screening for Streptococcus B (principal) ==

== ENCOUNTER 2023-06-22 06:28 | Inpatient (IN) | payer OTHER ==
[~2023-06-22] VITALS: Ht 149.9 cm; Wt 88.6 kg
[2023-06-22] VITALS (13 sets, daily range): BP systolic 115–171; BP diastolic 61–91; O2SAT 99
[2023-06-22] MEDS ORDERED: OXYTOCIN 30UNITS IN 0.9% NaCl 500ML IV BAG As Ordered ONE (06:43)
[2023-06-22] MEDS ORDERED: OXYTOCIN DRIP 30 UNITS in IV 1 EA IV PRN (07:05)
[2023-06-22] MEDS ORDERED: METHYLERGONOVINE MALEATE 0.2MG/ML 1ML VIAL IM PRN (07:05)
[2023-06-22] MEDS ORDERED: CARBOPROST TROMETHAMINE 250 MCG/ML AMP IM PRN (07:05)
[2023-06-22] MEDS ORDERED: OXYTOCIN INJ 10UNITS/ML 1ML VIAL IM PRN (07:05)
[2023-06-22] MEDS ORDERED: TRANEXAMIC ACID INJection 1,000 MG in NS 100 ML IV PRN (07:05)
[2023-06-22 07:35] LABS: HEMATOCRIT 39.5 % (36.0-47.0); HEMOGLOBIN 12.8 g/dl (12.0-15.5); MEAN CORPUSCULAR HGB CONC 32.4 g/dl (32.0-36.5); MEAN CORPUSCULAR VOLUME 92.5 fl (80.0-96.0); PLATELET COUNT, AUTOMATED 268 10^3/uL (150-450); RED BLOOD COUNT 4.27 10^6/uL (4.00-5.40); WHITE BLOOD COUNT 13.7 10^3/uL (4.0-10.0)
[2023-06-22] MEDS ORDERED: ANUSOL HC CREAM 30GM TOP PRN (07:50)
[2023-06-22] MEDS ORDERED: DIBUCAINE 1% OINTMENT 30GM TOP PRN (07:50)
[2023-06-22] MEDS ORDERED: IBUPROFEN 600MG TAB PO PRN (07:50)
[2023-06-22] MEDS ORDERED: LABETALOL 100MG/20ML VIAL IV STA (07:50)
[2023-06-22] MEDS ORDERED: MOM 30ML SUSPENSION UDC PO PRN (07:50)
[2023-06-22] MEDS ORDERED: ACETAMINOPHEN TAB 650MG DOSE (2X325MG) PO PRN (07:50)
[2023-06-22] MEDS ORDERED: DOCUSATE SODIUM 100MG CAPSULE PO PRN (07:50)
[2023-06-22] MEDS ORDERED: RHOGAM 300MCG (1500IU) INJ IM SCH (07:50)
[2023-06-22] MEDS: PRENATAL VITAMINS CHEWABLE TABLET PO SCH (08:03)
[2023-06-22] MEDS: ACETAMINOPHEN 500 MG TAB PO PRN (08:03)
[2023-06-22 09:13] LABS: LDH LACTATE DEHYDROGENASE 173 U/L (120-246); URIC ACID 4.8 MG/DL (3.1-7.8)
[2023-06-22 09:14] LABS: ALT/SGPT 12 U/L (7.0-40); AST/SGOT 13 U/L (<34); BILIRUBIN,TOTAL 0.5 MG/DL (0.3-1.2); CREATININE FOR GFR 0.58 MG/DL (0.55-1.30); GLOMERULAR FILTRATION RATE > 60.0 (>60)
[2023-06-22 09:41] LABS: TOTAL PROTEIN,RANDOM URINE 40.4 MG/DL (0.0-14.0)
[2023-06-22 09:44] LABS: AMPHETAMINES URINE REFLEX NEGATIVE (NEGATIVE); BARBITURATES URINE REFLEX NEGATIVE (NEGATIVE); BENZODIAZEPINES URINE REFLEX NEGATIVE (NEGATIVE); COCAINE METABOLITE URINE REFLE NEGATIVE (NEGATIVE); METHADONE URINE REFLEX NEGATIVE (NEGATIVE); OPIATES URINE REFLEX NEGATIVE (NEGATIVE); PHENCYCLIDINE URINE REFLEX NEGATIVE (NEGATIVE)
[2023-06-22 09:46] LABS: CREATININE,RANDOM URINE 28.9 MG/DL
[2023-06-22 09:57] LABS: CANNABINOIDS URINE REFLEX PENDING CONFIRMATION (NEGATIVE)
[2023-06-22] MEDS: NICOTINE 21MG/24HR 1 EA TRANSDERMAL TD SCH (17:05)
[2023-06-22] MEDS: IBUPROFEN 800 MG TAB PO PRN ×2 (17:05→21:13)
[2023-06-22] MEDS ORDERED: medroxyPROGESTERone ACET IM SUSP 150 MG/ML VIAL IM ONE (18:25)
[2023-06-23 02:00] VITALS: BP 114/63; O2SAT 98
[2023-06-23] MEDS: ACETAMINOPHEN 500 MG TAB PO PRN (02:25)
[2023-06-23 06:00] VITALS: BP 136/71; O2SAT 100
[2023-06-23] MEDS: PRENATAL VITAMINS CHEWABLE TABLET PO SCH (09:59)
[2023-06-23 10:00] VITALS: BP 140/86; O2SAT 100
[2023-06-23] MEDS ORDERED: HOME MED LIST COMPLETE! XX SCH (10:45)
[2023-06-23] MEDS ORDERED: GABA600T4 PO (10:55)
[2023-06-23] MEDS: NICOTINE 21MG/24HR 1 EA TRANSDERMAL TD SCH (13:05)
[2023-06-23 14:00] VITALS: BP 137/81; O2SAT 99
[2023-06-23] MEDS: GABAPENTIN 400MG CAP PO SCH ×2 (16:23→22:04)
[2023-06-23 18:00] VITALS: BP 132/86; O2SAT 97
[2023-06-23 22:00] VITALS: BP 143/86; O2SAT 99
[2023-06-24 02:00] VITALS: BP 156/83; O2SAT 99
[2023-06-24] MEDS: IBUPROFEN 800 MG TAB PO PRN (02:10)
[2023-06-24 06:00] VITALS: BP 165/76; O2SAT 99
[2023-06-24] MEDS ORDERED: MEASLES,MUMPS,RUBELLA VACCINE INJ (MMR-II) SC.IMMUN ONE (09:00)
[2023-06-24] MEDS: GABAPENTIN 400MG CAP PO SCH (09:21)
[2023-06-24] MEDS: PRENATAL VITAMINS CHEWABLE TABLET PO SCH (09:21)
[2023-06-24 10:00] VITALS: BP_SYST 132; BP_SYST 142; BP_DIAS 78; BP_DIAS 92; O2SAT 97
[2023-06-24 16:14] LABS: Cannabinoid Positive (.); Carboxy THC Conf, MS, UR 328 ng/mL (Cutoff=10)
== END 2023-06-24 17:30 | disposition home or self-care (01) | DRG 560 ==
LOC: M LDO 06:28 → M LDI 06:35 → M OBS 08:54
PROVIDERS: ADMIT Obstetrics & Gynecology; ATTEND Advanced Practice Midwife
PROC: 10E0XZZ Delivery of Products of Conception, External Approach (ICD-10-PCS; principal; 2023-06-22)
DX: O62.3 Precipitate labor (principal); O99.344 Other mental disorders complicating childbirth; F32.A Depression, unspecified; Z3A.37 37 weeks gestation of pregnancy; Z37.0 Single live birth; O77.0 Labor and delivery complicated by meconium in amniotic fluid; F41.9 Anxiety disorder, unspecified

== ENCOUNTER → 2023-10-30 | Outpatient (REF) | payer OTHER ==
[~2023-10-30] MED LIST changes: -GABA-283 PO; +GABA-284 PO; +GABA600T4 PO
[2023-10-30 18:51] LABS: CHLAMYDIA DNA AMPLIFICATION NEGATIVE (NEGATIVE); GC DNA AMPLIFICATION NEGATIVE (NEGATIVE)
== END ==
LOC: M SFHCWAGY 15:23
PROVIDERS: ATTEND Advanced Practice Midwife
DX: Z01.419 Encounter for gynecological examination (general) (routine) without abnormal findings (principal); Z11.3 Encounter for screening for infections with a predominantly sexual mode of transmission; R33.9 Retention of urine, unspecified; Z12.4 Encounter for screening for malignant neoplasm of cervix

== ENCOUNTER → 2023-12-04 | Outpatient (REF) | payer OTHER | LOC: M PLALAB 13:51 | PROVIDERS: ATTEND Advanced Practice Midwife | DX: R87.610 Atypical squamous cells of undetermined significance on cytologic smear of cervix (ASC-US) (principal); R87.810 Cervical high risk human papillomavirus (HPV) DNA test positive ==

== ENCOUNTER 2024-05-04 16:18 | Emergency (ER) | payer OTHER ==
[~2024-05-04] VITALS: Ht 149.9 cm; Wt 74.1 kg
[~2024-05-04 16:18] MED LIST changes: +ONDA-282 PO; -ONDA4TAB6 PO
[2024-05-04 16:19] VITALS: BP 132/62; TEMP 98.5; O2SAT 99
== END 2024-05-04 19:43 | disposition left against medical advice (07) ==
LOC: M ED 16:18
DX: Z53.21 Procedure and treatment not carried out due to patient leaving prior to being seen by health care provider (principal)